=== PATIENT | male | born 1945 | race Caucasian/White ===

== ENCOUNTER → 2024-02-08 10:45 | Outpatient (REF) | payer OTHER, SELFPAY | LOC: PET 10:45 | PROVIDERS: ATTENDING PHYSICIAN Internal Medicine Hematology & Oncology | DX: C34.11 Malignant neoplasm of upper lobe, right bronchus or lung (principal) | CPT/HCPCS: 78815; A9552 ==

== ENCOUNTER → 2024-07-11 10:42 | Outpatient (REF) | payer OTHER, SELFPAY | LOC: PET 10:42 | PROVIDERS: ATTENDING PHYSICIAN Internal Medicine Hematology & Oncology | DX: C34.11 Malignant neoplasm of upper lobe, right bronchus or lung (principal) | CPT/HCPCS: 78815; A9552 ==

== ENCOUNTER → 2024-07-25 10:00 | Outpatient (REF) | payer OTHER, SELFPAY | LOC: RCS 10:00 | PROVIDERS: ATTENDING PHYSICIAN Nurse Practitioner; FAMILY PHYSICIAN Internal Medicine Hematology & Oncology | DX: I48.0 Paroxysmal atrial fibrillation (principal); C34.90 Malignant neoplasm of unspecified part of unspecified bronchus or lung; Z51.11 Encounter for antineoplastic chemotherapy | CPT/HCPCS: 93306; 93356 ==

== ENCOUNTER 2024-08-17 17:15 | Inpatient (IN) | payer OTHER, SELFPAY ==
[2024-08-17] VITALS (11 sets, daily range): BP systolic 92–147; BP diastolic 61–93; BMI 29.9
--- NOTE | 2024-08-17 10:45 | ED.GENMED ---
History of Present Illness
<SWATI Stone - Last Filed: 08/17/24 17:46>
General
Chief Complaint: Change in Mental Status
Source: patient and family
Exam Limitations: altered mental status
Time Seen by Provider: 08/17/24 10:36
Nursing documentation reviewed up to this point in time: agreed with
History of Present Illness
History of Present Illness:
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 Ashley cesar at [facility] presents today for evaluation. Patient normally manages his care but his sisters were at bedside also assist with
him. He does have a right pleural tube and they do drain periodically. They report when they saw patient on Tuesday 2 days ago they noticed he had some difficulty getting his words out. Sister reports he was okay with yes or no answers but
otherwise was having some difficulty. She thought it was from his new chemo medication. On July 27 he was started on oral Rozlytrek and in addition is also on steroids .
Sisters note that pt also has swelling in his feet legs hand and abdomen.
Patient is scheduled to have laser interstitial thermal therapy(DIAN) by neurosurgeon at [facility] Dr.H Salazar Munoz in August for brain mass. He has seen DR Theodore Rocha (neurosurgeon for gamma knife)
Past History
<SWATI Stone - Last Filed: 08/17/24 17:46>
Past History
ED Past Medical History: Cancer (lung cancer), Hypercholesterolemia and Psychiatric (Anxiety); Negative IDDM
ED Past Surgical History: Negative Cardiac
Social History
Tobacco: Non-smoker
Alcohol: None
Drug: None
Personal:
Living: with family
Employment: Retired
Family History
Family History: Other (Noncontributory)
Phy Exam
<SWATI Stone - Last Filed: 08/17/24 17:46>
General Physical Exam
General Presentation: no apparent distress
General age: appears stated age
General Skin: warm and dry
General Habitus: normal
General Mental: alert
General Hydration: appears well hydrated
Cardiovascular Exam
Cardiovascular Exam: regular rate/rhythm, no murmur and normal peripheral pulses
Pulmonary Exam
Pulmonary Exam: lungs clear and no respiratory distress
Neurological Exam
Neurological Exam: alert, oriented x3, no motor deficits, no sensory deficits and other (speech clear answers one word questions ; full range of motion upper lower extremities no focal deficit; follows commands)
Course
<SWATI Stone - Last Filed: 08/17/24 17:46>
Orders/Labs/Results
Orders:
Orders
08/17/24 11:00
CT Head W/o Iv Contrast Urgent
Comment:
Reason For Exam: change in ms hx of brain metastasis
08/17/24 11:04
Chest [CR Chest - 2 Views ] Urgent
Comment:
Reason For Exam: sob
08/17/24 12:25
Complete Blood Count/With Diff Urgent
Comprehensive Metabolic Panel Urgent
Pro-BNP [NT-proBNP] Urgent
08/17/24 13:51
Furosemide [Lasix] 40 mg IV NOW STA
08/17/24 13:52
Dexamethasone Sod Phosphate [Decadron] 6 mg IV NOW STA
08/17/24 15:16
Forrest [Forrest Placement- Treatment] ONCE
Reason for insertion: Acute Retention
08/17/24 15:19
Neurosurgery Consult Routine
Consulting Provider: Timbo Alicea
Was physician already notified: Yes
Reason for Consult: vasogenic cerebral edema due to mets
08/17/24 15:50
Urinalysis Reflex To Culture Urgent
Date Specimen was Collected: 08/17/24
Time Specimen was Collected: 15:32
08/17/24 16:30
Admit/Transfer Patient As Directed
Co-Sign Provider:
Level of Care: Inpatient admission
Assign to:: Medical/Surgical
Physician / Group: Hospitalist
Diagnosis: AMS, metastatic lung cancer
Reason for Hospitalization: As above
Expected length of stay greater than two midnights?: Yes
ELOS- Estimated Length of Stay in days: 3
I certify the patient meets the requirements for IP care: Yes
PRN Pain Medication Management As Directed
May give lesser potent ordered pain med per pt: Yes
preference::
Protocol:: Medication orders for pain may be administered in a
manner that supports deferring to patient preference
when the pt is:
- Requesting an ordered lesser potent pain medication.
Least to most potent pain medications are defined
as: acetaminophen < NSAID < tramadol < opioids
(morphine, oxycodone, hydromorphone).
- Requesting a lesser dose of the same medication IF
ORDERED.
- Requesting a less intrusive route of administration
if both routes are prescribed by the provider (PO <
IV).
08/17/24 16:33
Code Status As Directed
Resuscitation Status: Do not resuscitate
Reached after discussion with pt or family/Healthcare POA: Yes
08/17/24 16:34
DNR Bracelet Application ONCE
Abnormal Lab Results
08/17/24
12:25
RBC 4.23 L 10^6/uL
(4.70-6.10)
Hgb 12.4 L g/dL
(13.0-18.0)
Hct 37.0 L %
(39.0-52.0)
Absolute Monos (auto) 0.8 H 10^3/uL
(0.1-0.6)
Lymphocytes % 16.9 L %
(20.5-51.1)
BUN 25 H mg/dl
(9-20)
Creatinine 1.5 H mg/dL
(0.7-1.3)
Total Protein 5.9 L g/dl
(6.3-8.2)
Albumin 3.4 L g/dl
(3.5-5.0)
08/17/24 12:25
08/17/24 12:25
Vital Signs
Initial and Last Documented VS:
Initial Vital Signs
Temp Pulse Resp BP Pulse Ox
98.0 F 90 16 128/74 98
08/17/24 10:15 08/17/24 10:15 08/17/24 10:15 08/17/24 10:15 08/17/24 10:15
Last Documented Vital Signs
Temp Pulse Resp BP Pulse Ox
98.0 F 100 21 133/84 92
08/17/24 10:15 08/17/24 17:15 08/17/24 17:15 08/17/24 17:00 08/17/24 17:15
Applique Sewer consulted with Physician
Applique Sewer consulted with physician?: Yes
Name of Physician Consulted: DR Bey
<Vicente Ortega, DO - Last Filed: 08/17/24 13:57>
Orders/Labs/Results
Orders:
Orders
08/17/24 11:00
CT Head W/o Iv Contrast Urgent
Comment:
Reason For Exam: change in ms hx of brain metastasis
08/17/24 11:04
Chest [CR Chest - 2 Views ] Urgent
Comment:
Reason For Exam: sob
08/17/24 12:25
Complete Blood Count/With Diff Urgent
Comprehensive Metabolic Panel Urgent
Pro-BNP [NT-proBNP] Urgent
08/17/24 13:51
Furosemide [Lasix] 40 mg IV NOW STA
08/17/24 13:52
Dexamethasone Sod Phosphate [Decadron] 6 mg IV NOW STA
08/17/24 15:16
Forrest [Forrest Placement- Treatment] ONCE
Reason for insertion: Acute Retention
08/17/24 15:19
Neurosurgery Consult Routine
Consulting Provider: Timbo Alicea
Was physician already notified: Yes
Reason for Consult: vasogenic cerebral edema due to mets
08/17/24 15:50
Urinalysis Reflex To Culture Urgent
Date Specimen was Collected: 08/17/24
Time Specimen was Collected: 15:32
08/17/24 16:30
Admit/Transfer Patient As Directed
Co-Sign Provider:
Level of Care: Inpatient admission
Assign to:: Medical/Surgical
Physician / Group: Hospitalist
Diagnosis: AMS, metastatic lung cancer
Reason for Hospitalization: As above
Expected length of stay greater than two midnights?: Yes
ELOS- Estimated Length of Stay in days: 3
I certify the patient meets the requirements for IP care: Yes
PRN Pain Medication Management As Directed
May give lesser potent ordered pain med per pt: Yes
preference::
Protocol:: Medication orders for pain may be administered in a
manner that supports deferring to patient preference
when the pt is:
- Requesting an ordered lesser potent pain medication.
Least to most potent pain medications are defined
as: acetaminophen < NSAID < tramadol < opioids
(morphine, oxycodone, hydromorphone).
- Requesting a lesser dose of the same medication IF
ORDERED.
- Requesting a less intrusive route of administration
if both routes are prescribed by the provider (PO <
IV).
08/17/24 16:33
Code Status As Directed
Resuscitation Status: Do not resuscitate
Reached after discussion with pt or family/Healthcare POA: Yes
08/17/24 16:34
DNR Bracelet Application ONCE
Abnormal Lab Results
08/17/24
12:25
RBC 4.23 L 10^6/uL
(4.70-6.10)
Hgb 12.4 L g/dL
(13.0-18.0)
Hct 37.0 L %
(39.0-52.0)
Absolute Monos (auto) 0.8 H 10^3/uL
(0.1-0.6)
Lymphocytes % 16.9 L %
(20.5-51.1)
BUN 25 H mg/dl
(9-20)
Creatinine 1.5 H mg/dL
(0.7-1.3)
Total Protein 5.9 L g/dl
(6.3-8.2)
Albumin 3.4 L g/dl
(3.5-5.0)
08/17/24 12:25
08/17/24 12:25
Vital Signs
Initial and Last Documented VS:
Initial Vital Signs
Temp Pulse Resp BP Pulse Ox
98.0 F 90 16 128/74 98
08/17/24 10:15 08/17/24 10:15 08/17/24 10:15 08/17/24 10:15 08/17/24 10:15
Last Documented Vital Signs
Temp Pulse Resp BP Pulse Ox
98.0 F 100 21 133/84 92
08/17/24 10:15 08/17/24 17:15 08/17/24 17:15 08/17/24 17:00 08/17/24 17:15
<SWATI Stone - Last Filed: 08/17/24 17:46>
MDM/Problems Addressed
Differential Diagnosis Includes:
Not limited to stroke, complication from brain metastasis, infection
MDM/Problems Addressed:
Patient is a 79-year-old male with metastatic lung cancer to brain followed by Dr. Wakefield at [facility]. in addition he is followed by [facility] and has neurosurgeons there. Sisters and significant other at bedside report patient has had
a change in mental status for the past several days. Patient presents awake alert he is able to tell me where he is and answer yes and no questions however does have difficulty reporting history and speaking in sentences. Speech is clear no focal
deficits he is ambulatory and steady. CAT scan shows increased vasogenic edema. In addition to mental status changes he has had increased swelling in his lower extremities and family reports patient recently started on new chemo agent, Rozlytrek.
pt presents awake alert he does follow commands he is answering very specific yes or no questions or has difficulty giving history and difficulty speaking in sentences. His speech is clear. CAT scan does show increased vasogenic edema as
documented. He does have obvious swelling of lower extremities. Patient has a known pleural effusion with home drainage every other day. 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
I spoke with DR Rosales neurosurg at [facility] who did review his prior images and is okay with patient staying here for admission but will need IV steroids. As discussed with I did order Decadron 6 mg IV and will order Lasix 40 mg iv .
Neuro surg DR Alicea ok with pt being admitted here
<SWATI Stone - Last Filed: 08/17/24 17:46>
*Radiology
Radiology exam reviewed: radiology read reviewed
*Critical Care Note
Total Time (30-74mins, 75-104mins- exclusive of procedures): Not Applicable
ED Attending Note
<SWATI Stone - Last Filed: 08/17/24 17:46>
-
Portions of this chart may have been created with voice recognition software.� Occasional wrong word or��sound alike� substitutions may have occurred due to the inherent limitations of voice recognition software.
<Vicente Ortega, DO - Last Filed: 08/17/24 13:57>
ED Attending Note
Patient seen and examined by attending physician: Yes
I performed the substantive portion of visit, reviewed & personally made and approve the management plan that is documented in note by myself or VIRIDIANA.: Yes
I performed a history and physical exam of patient and discussed management with resident, I reviewed resident's note and agree with documented findings and plan of care.: Yes
ED Attending Note:
I evaluated the patient bedside and the patient's family. Family strongly prefers patient to be kept in the hospital here. Edema noted and BNP has worsened. Large loculated pleural effusion noted.
Discharge Plan
Departure
Patient Disposition: Admit
Date of Disposition: 08/17/24
Time of Disposition: 14:55
Admit to: Telemetry
Admit to doctor: hospitalist
Presentation/result/management discussed w/ accepting MD/DO: Hospitalist
Patient with high blood pressure during this ER visit?: Yes
Condition: Fair
Covid-19: Not Applicable
Discharge Problem:
Altered mental status, fluid overload
Interventions
Interventions:
*Risk Screen - Suicide Last Done: 08/17/24 12:21
*General Assessment Last Done: 08/17/24 12:21
*Neglect/Abuse Screening Last Done: 08/17/24 12:21
ED- Fall Risk Assessment Last Done: 08/17/24 12:21
*ED COVID-19 Vaccine History Last Done: 08/17/24 12:21
ED- Pulmonary Assessment Last Done: 08/17/24 12:21
ED- Neurological Assessment Last Done: 08/17/24 12:21
ED- Cardiac Assessment Last Done: 08/17/24 12:21
ED Swallowing Screen Last Done: 08/17/24 12:21
[2024-08-17 12:39] LABS: % Basophils 0.2 % (0-2); % Eosinophils 0.9 % (0-6); % Immature Granulocytes 0.3 % (0-0.5); % Lymphocytes 16.9 % (20.5-51.1); % Monocytes 9.3 % (1.7-9.3); % Neutrophils 72.4 % (42.2-75.2); Absolute Eosinophils 0.1 10^3/uL (0-0.7); Absolute Lymphocytes 1.5 10^3/uL (1.2-3.4); Absolute Monocytes 0.8 10^3/uL (0.1-0.6); Absolute Neutrophils 6.3 10^3/uL (1.4-6.5); Hemoglobin 12.4 g/dL (13.0-18.0); Mean Corp Hgb Conc. 33.5 g/dL (33.0-37.0); Mean Corpuscular Hgb 29.3 pg (27.0-31.0); Mean Corpuscular Volume 87.5 fL (80.0-94.0); Mean Platelet Volume 8.4 fL (7.4-10.4); Nucleated Red Blood Cells % 0 % (-); Platelet Count 156 10^3/uL (130-400); Red Blood Cell Count 4.23 10^6/uL (4.70-6.10); Red Cell Dist. Width 14.3 % (11.5-14.5); White Blood Cell Count 8.7 10^3/uL (4.8-10.8)
[2024-08-17 12:46] LABS: ALT (SGPT) 20 U/L (0-50); AST (SGOT) 39 U/L (17-59); Albumin 3.4 g/dl (3.5-5.0); Alkaline Phosphatase 64 U/L (38-126); Blood Urea Nitrogen 25 mg/dl (9-20); Calcium 8.5 mg/dl (8.4-10.2); Carbon Dioxide 30 mmol/L (22-30); Chloride 103 mmol/L (98-107); Estimated Creatinine Clearance 49 ml/min; Glucose 86 mg/dl (70-99); Potassium 4.8 mmol/L (3.5-5.1); Sodium 140 mmol/L (135-145); Total Bilirubin 1.2 mg/dl (0.2-1.3); Total Protein 5.9 g/dl (6.3-8.2); eGFR 47.36
[2024-08-17 12:55] LABS: NT-proBNP 1560 pg/ml
[2024-08-17] MEDS: LASIX 40 MG IV (14:37)
[2024-08-17] MEDS: DECADRON 6 MG IV (14:37)
--- NOTE | 2024-08-17 16:22 | CM ---
Patient seen at bedside in ED with physician. Patient sister stated that patient lives alone in a split level home. Patient sister is his POA and stated that the form is at the house and she will bring it to the hospital for physician. Patient
Daughter is Toshia and her phone number is [phone] and she comes on a regular basis to assist patient with house chores. Patient does not allow family into the home and prefers things to be private. Patient has a 'ladyfriend' Danyell who is a
nurse and patient drives to her home in [place]- one story set up possible and stays there -tue. 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 Patient has no DME or past need for VN, no SNF. Patient has been
very sharp until approx /tue per sisters. Patient PCP is Dr. Yee, recently changed from Dr. Diaz- same practice and he uses the [facility] in [place]. Per sisters patient is very independent and they are unaccustomed to him not being able to
speak or direct his care. Discharge plan will depend upon patient functional status and medical treatment needs. CM will continue to follow for discharge planning needs.
Plan; pending functional assessment/medical treatment plan.
[2024-08-17 16:34] LABS: Urine Albumin Negative (Neg - Trace); Urine Bilirubin Negative (Negative); Urine Character Clear (Clear); Urine Color Yellow; Urine Glucose Negative (Negative); Urine Ketone Negative (Negative); Urine Leukocyte Negative (Negative); Urine Nitrite Negative (Negative); Urine Occult Blood Negative (Negative); Urine Urobilinogen Negative (Neg - 1+)
--- NOTE | 2024-08-17 16:51 | W.PN.UPDATE ---
Update Note
Progress Note Update
I personally performed a history and physical exam of the patient and discussed management with the resident. I reviewed the resident's note and agree with the documented findings and plan of care HPI/CC.
129/89, 101, 21, 98.0 �F, 92% RA
NAD, AAOx1, NCAT
EOMI/PERRLA, no scleral icterus
Tachycardic, regular rhythm with frequent premature beats, normal S1-S2
Clear to auscultate bilaterally anteriorly
Cranial nerves II 12 are intact, 4/5 strength in all 4 extremities
2+ bilateral lower extremity edema
Lab Results
08/17/24 08/17/24
12:25 15:50
WBC 8.7
RBC 4.23 L
Hgb 12.4 L
Hct 37.0 L
MCV 87.5
MCH 29.3
MCHC 33.5
RDW 14.3
Plt Count 156
MPV 8.4
Abs Immat Gran (auto) 0.0
Absolute Neuts (auto) 6.3
Absolute Lymphs (auto) 1.5
Absolute Monos (auto) 0.8 H
Absolute Eos (auto) 0.1
Absolute Basos (auto) 0.0
Immature Gran % 0.3
Neutrophils % 72.4
Lymphocytes % 16.9 L
Monocytes % 9.3
Eosinophils % 0.9
Basophils % 0.2
Nucleated RBC % 0
Sodium 140
Potassium 4.8
Chloride 103
Carbon Dioxide 30
BUN 25 H
Creatinine 1.5 H
Estimated Creat Clear 49
eGFR 47.36
Glucose 86
Calcium 8.5
Total Bilirubin 1.2
AST 39
ALT 20
Alkaline Phosphatase 64
Era-B-Nmawzksrxav Pept 1560
Total Protein 5.9 L
Albumin 3.4 L
Urine Color Yellow
Urine Clarity Clear
Urine pH 7.0
Ur Specific [place] 1.010
Urine Ketones Negative
Ur Occult Blood Reflex Negative
Urine Nitrite (Reflex) Negative
Urine Bilirubin Negative
Urine Urobilinogen Negative
Leukocyte Esterase Rfl Negative
Urine Glucose Negative
Urine Albumin (Reflex) Negative
CT brain:
1. SEVERE VASOGENIC EDEMA throughout the superior LEFT FRONTAL LOBE surrounding a 1.9 cm INTRAPARENCHYMAL BRAIN METASTASIS. Marked interval increase in vasogenic edema since 07/21/2022.
2. Mild diffuse cerebral and cerebellar volume loss.
Acute encephalopathy:
-Likely due to vasogenic edema from metastatic lung cancer to the brain vs side effects of new chemo agent, Rozyltrek
-IV Decadron started in the ER, continue
-Patient is followed by neurosurgery at [facility]. The ER did discuss the case with the patient's neurosurgeon, Dr. Rosales who stated that he was ok with the pt staying at . Case discussed with Dr. Alicea who was in agreement (official c/s to
neurosurgery placed)
-afebrile, no leukocytosis
-c/s ONC
-PT/OT
B/L LE edema:
-Patient's family has noted worsening edema since he started his most recent chemotherapeutic drug
-IV Lasix given by the ER
-Will monitor daily and determine further Lasix dosing on a daily basis
--- NOTE | 2024-08-17 16:51 | HPS.HSE ---
Family Physician
-
Family Physician: Vazquez Yee
Chief Complaint
-
altered mental status
History of Present Illness
79yo M with H metastatic lung cancer with involvement of brain, who presents to ED 08/17/24 for altered mental status. His sisters Julianne (medical POA) and Marielos are at bedside and provided history. He was very healthy with no medical history
up until 4 years ago when he was diagnosed with lung cancer after presenting with shortness of breath. He has a chronic pleural effusion on the right, for which he has an ascept drain in place which is drained every 2 days. In Jun 2022, an MRI
indicated his lung cancer metastasized to brain. At his baseline, he is 'brilliant' and 'sharp as a tack' per his family. He was living alone, completely independently, driving self to own appointments, keeping meticulous records of his medical
care; has not required care facility or visiting nursing. Approximately 2-3 days ago, his family began noticing confusion, difficulty getting words out, as well as swelling in hands, feet, legs bilaterally. Recent medications include initiation of
rozlytrek on 07/27/24 as well as a recent steroid taper which stopped a few days ago. Patient agrees he is not feeling like himself and feels confused.
Medical History
Past Medical History
Past Medical History: Reports Arrhythmia (paroxysmal afib), Cancer (metastatic lung cancer, brain involvement), GERD and Psychiatric (anxiety)
Additional Past Medical History:
oncologist: Shanthi Ramirez
intermediate manager: Quinn Newell
furniture polisher: Dr Zuleyka Fung
radiation oncologist: Aida Michaud
radition oncologist (gamma knife): Jose Carlson
neurosurgeon (gamma knife): Theodore Rocha
neurosurgeon (laser interstitial thermal therapy): Salazar Munoz
thoracic surgeon: Jesse Prado- advised against VATS, decortication
ID: Ken Pablo
PCP: Vazquez Yee (havent seen yet, former PCP was Tre Diaz)
Past Surgical History: Reports Other
Additional Past Surgical History:
paracentesis x24 from 07/2020-12/2022
L pleural catheter 11/24/22-02/13/23
R pleural catheter 02/13/23-present (required replacement and tpa/dnase 11/10/23)
gamma knife radiation treatment
Social History
Tobacco: Former Smoker
Alcohol: Occasional (social alcohol in past; no current alcohol use)
Drug: None ('experimentation' in teenage years, no IVDU)
Personal: Other ('lady friend' significant other)
Living: Alone (stays with SO -Tuesday)
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
Family History
Family History: Cancer (siblings- brain cancer, thyroid cancer, heart valve issue; father- stroke, lung/bone cancer; mother- leukemia) and Other
Allergies / Home Medications
Allergies reflects when Allergies were last updated in [facility].
Home Medications with original date entered in [facility]
Allergy/Medication List:
Allergies
Allergy/AdvReac Type Severity Reaction Status Date / Time
Latex, Natural Rubber Allergy Unknown Hives Verified 08/17/24 10:18
adhesive Allergy Hives Verified 08/17/24 10:18
Home Medications
docusate sodium 100 mg capsule (Colace) 100 mg PO BIDPRN PRN constipation 09/07/21
furosemide 40 mg tablet 40 mg PO Daily 12/22/22
sennosides 8.6 mg tablet (Senokot) 17.2 mg PO DAILYPRN PRN constipation 12/22/22
ferrous sulfate 325 mg (65 mg iron) tablet 325 mg PO DAILY 02/01/23
multivitamin 1 tab PO DAILY 11/10/23
entrectinib 200 mg capsule (Rozlytrek) 600 mg PO DAILY 08/17/24
ondansetron 8 mg disintegrating tablet 8 mg PO [id number] PRN nausea 08/17/24
pantoprazole 40 mg tablet,delayed release (Protonix) 40 mg PO DAILY 08/17/24
Review of Systems
-
Unable to obtain full review of systems at this time due to: Other (limited by AMS)
History Source: Patient
Respiratory: Denies Cough or Trouble Breathing
Cardiac: Denies Chest Pain
Abdomen/GI: Denies Abdominal Pain, Nausea or Vomiting
: Reports Difficulty Voiding
Neurological: Denies Dizzy
Hematologic/Lymphatic: Denies Bleeding or Bruising
Physical Exam
Vital Signs
Vital Signs
Temp Pulse Resp BP Pulse Ox
98.0 F 101 21 129/89 92
08/17/24 10:15 08/17/24 15:15 08/17/24 15:15 08/17/24 15:00 08/17/24 13:30
Physical Exam
General: Well Developed, Well Nourished and No Apparent Distress
HEENT: NormoCephalic, Anicteric and Atraumatic
Respiratory: Clear (left side), Non Labored Respirations, Decreased Breath Sounds (right side) and Other (right pleural catheter present, covered by dressing)
Cardiac: S1/S2 and Regular Rhythm
GI: Soft, Non Tender, Non Distended and Normal Bowel Sounds
Genito-urinary: Clear Urine and Forrest
Musculoskeletal: Other (bilateral 2+ pitting edema lower extremities, symmetric)
Skin: Warm, Dry and Other (pink discoloration of shins bilaterally)
Neuro: Awake and Alert; No Oriented, Slurred Speech or Facial Droop
Psych: Calm and Confused
Laboratory Results
-
08/17/24 12:25
08/17/24 12:25
Laboratory Results
Total Bilirubin 1.2 mg/dl (0.2-1.3) 08/17/24 12:25
AST 39 U/L (17-59) 08/17/24 12:25
ALT 20 U/L (0-50) 08/17/24 12:25
Alkaline Phosphatase 64 U/L (38-126) 08/17/24 12:25
Data Reviewed
-
Lab Data: Labs Reviewed by me and Discussed with Physician
Impression/Plan
-
79yo M with PMH metastatic lung cancer with involvement of brain, who presents to ED 08/17/24 for altered mental status. History on admission obtained from sisters Julianne (medical POA) and Marielos are at bedside and provided history.
Acute encephalopathy
- Likely due to vasogenic edema secondary to brain involvement of metastatic lung cancer
- Afebrile, no leukocytosis
- ED discussed with patient's neurogeon at [facility], who agrees with hospitalization and ok with admission. Admit to [facility].
- Started on IV decadron in ED, will continue decadron 4mg q6h
- Hold home rozlytrek given side effect profile significant for cognitive dysfunction, ataxia, fatigue, etc.
- Consult neurosurgery and oncology, appreciate recs.
- Patient's family and POA also open to palliative approach, goals of care discussion ongoing. Will consider palliative care consult
- PT/OT consult
Metastatic lung cancer
R pleural catheter
- Continue routine drainage of pleural catheter
- Care as above
Bilateral lower extremity edema
- Continue home lasix 40mg po qd
- Reassess prn
Urinary retention
- Difficulty urinating in ED, bladder scan notable for incomplete voiding
- Forrest catheter placed in ED, continue.
Code status: DNR- discussed with POA sister Julianne on admission
Diet: Regular
VTE ppx: lovenox 40
Dispo planning: TBD
--- NOTE | 2024-08-17 18:30 | PTCARENOTE ---
pt admitted to room 327 from ED. pt stood and pivoted to bed with 1 assist, generalized weakness. oriented to room and unit. pt AAOx2- confused place, selectively answering questions. +1 lower extremity edema. shins with redness noted. pt updated on
plan of care.
[2024-08-17] MEDS: DECADRON 4 MG IV (20:16)
[2024-08-18] MEDS: DECADRON 4 MG IV ×4 (02:24→19:57)
--- NOTE | 2024-08-18 07:47 | W.PN.HOSP.TC ---
Addendum entered and electronically signed by Nancy Villanueva MD, Resident 08/18/24 15:18:
At bedside this afternoon to review plan with patient, sisters, and SO Danyell. Plan was for pleural cath drainage today, however they prefer this be done by IR tech. Discussed with IR and consult placed. S/p PT/OT eval today, recommended home
health- patient and family agreeable with increased care needs at home and help with transportation to/from appointments. Urine concentrated- encouraged PO hydration. TOV to be completed this afternoon, oncology consult pending. Family appreciative
of updates, no further questions at this time. Patient in good mood, eating, more conversant, jokingly says 'you are dismissed.'
Addendum entered and electronically signed by Salomón Yoon MD 08/18/24 09:55:
I saw and evaluated the patient. I reviewed the resident�s note and agree with findings and plan as documented in the resident�s note.
When asked how the patient was feeling he said 'great. I'd like you to see me later.'
NAD, awake and alert
CN2-12 intact
Unable to perform the rest of the physical exam due to to the patient's refusal.
CT brain:
1. SEVERE VASOGENIC EDEMA throughout the superior LEFT FRONTAL LOBE surrounding a 1.9 cm INTRAPARENCHYMAL BRAIN METASTASIS. Marked interval increase in vasogenic edema since 07/21/2022.
2. Mild diffuse cerebral and cerebellar volume loss.
Acute encephalopathy:
-Likely due to vasogenic edema from metastatic lung cancer to the brain +/- side effects of new chemo agent, Rozyltrek
-cont IV Decadron started in the ER
-Patient is followed by neurosurgery at [place]. The ER did discuss the case with the patient's neurosurgeon, Dr. Rosales who stated that he was ok with the pt staying at . Case discussed with Dr. Alicea who was in agreement. No need for official
neurosurgical c/s at this time.
-afebrile, no leukocytosis
-c/s ONC
-PT/OT
B/L LE edema:
-Patient's family has noted worsening edema since he started his most recent chemotherapeutic drug
-IV Lasix given by the ER
-cont home PO Lasix
Acute urinary retention:
-Discontinue Wing, trial of voiding
Possible LIMA:
-Cr 11/01/22 was 1.1, Cr today 1.4
-unclear what baseline Cr is
-with LE edema would not give IVFs at this time
-cont to monitor Cr outpt
Original Note:
Today's Communication/Plan
-
PT/OT, pleural catheter drainage today, trial of void with prn bladder scans
Assessment / Plan
Assessment / Plan
79yo M with PMH metastatic lung cancer with involvement of brain, who presents to ED 08/17/24 for altered mental status. History on admission obtained from sisters Julianne (medical POA) and Marielos at bedside.
Acute encephalopathy
- Likely due to vasogenic edema secondary to brain involvement of metastatic lung cancer
- No leukocytosis on admission. AM labs today pending. Remains afebrile.
- ED discussed with patient's neurogeon at [place], who agrees with hospitalization and ok with admission. Admit to [facility].
- Started on IV decadron in ED, will continue decadron 4mg q6h while inpatient. Anticipate PO steroids at discharge
- Hold home rozlytrek given side effect profile significant for cognitive dysfunction, ataxia, fatigue, etc. Reviewed with patient, he is in agreement.
- Patient's family and POA also open to palliative approach, goals of care discussion ongoing. Will consider palliative care consult
- PT/OT consult
Metastatic lung cancer
R pleural catheter
- Continue routine drainage of pleural catheter- due for this today
- Care as above
Bilateral lower extremity edema
- Continue home lasix 40mg po qd
- Reassess prn
Urinary retention
- Difficulty urinating in ED, bladder scan notable for incomplete voiding and wing catheter placed.
- Trial of void today and monitor UOP, bladder scan prn. Wiill reassess need for wing catheter prn.
Code status: DNR- discussed with POA sister Julianne on admission, and reviewed with patient 08/18/24
Diet: Regular
VTE ppx: lovenox 40
Dispo planning: TBD
Anticipated Discharge: 24 - 48 hours
Subjective/Interval History
-
Date of Service: August 18, 2024
No acute events overnight. He is comfortable, no pain. His complaints are the wing and difficulty communicating. He is very aware of his medical problems including communication, and is upset and frustrated by this. His goal is to go home today, [facility] SO[facility] He denies lightheadedness, dizziness, chest pain, shortness of breath, nausea, vomiting. He denies pain/difficulty swallowing, awaiting breakfast this morning.
Objective Data
-
Labs:
Laboratory Results
08/18/24
07:15
WBC Pending
Hgb Pending
Hct Pending
Plt Count Pending
Sodium Pending
Potassium Pending
Chloride Pending
Carbon Dioxide Pending
BUN Pending
Creatinine Pending
Glucose Pending
Calcium Pending
Vital Signs:
Vital Signs
Temp Pulse Resp BP Pulse Ox
98.5 F 74 20 110/61 95
08/17/24 23:25 08/17/24 23:25 08/17/24 23:25 08/17/24 23:25 08/17/24 23:25
I&O
08/17/24 08/18/24 08/19/24
06:59 06:59 06:59
Output Total 1700 / 1700
Balance -1700 / -1700
Review of Systems
-
History Source: Patient
All other systems: Reviewed and negative
Physical Exam
-
General: Well Developed, Well Nourished and Other (Physically comfortable. Engages in conversation appropriately though his responses to questions is somewhat limited. Visibly upset/frustrated by limited communicative abilities.)
HEENT: Normocephalic and Atraumatic
Respiratory: Clear to Auscultation (left), Non Labored Respirations, Decreased Breath Sounds (right) and Chest Tubes (right pleural catheter present, covered by dressing)
Cardiac: Regular Rhythm and S1/S2
GI: Soft, Nontender, Nondistended and Normal Bowel Sounds
Genito-urinary: Wing (draining clear concentrated yellow urine)
Musculoskeletal: Other (bilateral lower extremity pitting edema, symmetric)
Skin: Warm and Dry
Neuro: Awake and Alert
Psych: Calm, Intact Judgement/Insight and Other (tearful on exam, endorses frustration due to diminished ability to talk/express himself)
[2024-08-18 08:15] LABS: Hematocrit 38.2 % (39.0-52.0); Mean Corpuscular Hgb 30.6 pg (27.0-31.0); Mean Corpuscular Volume 89.9 fL (80.0-94.0); Mean Platelet Volume 8.7 fL (7.4-10.4); Platelet Count 168 10^3/uL (130-400); Red Blood Cell Count 4.25 10^6/uL (4.70-6.10); Red Cell Dist. Width 13.5 % (11.5-14.5); White Blood Cell Count 9.3 10^3/uL (4.8-10.8)
--- NOTE | 2024-08-18 08:28 | PTOTSP ---
Speech Pathology Screen
Chart reviewed. 79M with admission for acute encephalopathy likely 2/2 metastatic lung cancer with involvement of brain. Followed by neurosurgery at [place]. PMH significant for Arrhythmia (paroxysmal afib), Cancer (metastatic lung cancer, brain
involvement), GERD and Psychiatric (anxiety). Vital signs stable. WBC 9.3, WNL. Head CT 08/17 with �SEVERE VASOGENIC EDEMA throughout the superior LEFT FRONTAL LOBE surrounding a 1.9 cm INTRAPARENCHYMAL BRAIN METASTASIS� and �mild diffuse cerebral
and cerebellar volume loss.� CXR 08/07 with �LARGE LOCULATED MALIGNANT PLEURAL EFFUSION in the LATERAL RIGHT HEMITHORAX with a right chest tube remaining in place� and �Large amount of subpleural scarring and atelectasis in the right upper and
middle lobes� and �Right lower lobe cavitary airspace consolidation which appears unchanged.� No prior FRINGE WEAVER history at . Aspiration risk is increased given multiple comorbidities in the presence of AMS; however, no overt concerns for aspiration at
this time. Please re-consult if overt s/s arise.
[2024-08-18 08:30] VITALS: BP 126/79
[2024-08-18 08:38] LABS: Blood Urea Nitrogen 30 mg/dl (9-20); Calcium 8.8 mg/dl (8.4-10.2); Carbon Dioxide 28 mmol/L (22-30); Chloride 103 mmol/L (98-107); Estimated Creatinine Clearance 52 ml/min; Glucose 123 mg/dl (70-99); Potassium 4.3 mmol/L (3.5-5.1); Sodium 140 mmol/L (135-145); eGFR 51.45
[2024-08-18] MEDS: LASIX 40 MG PO (08:41)
[2024-08-18] MEDS: FEOSOL 325 MG PO (08:41)
[2024-08-18] MEDS: PROTONIX PO (08:49)
[2024-08-18] MEDS: COLACE 100 MG PO (08:57)
[2024-08-18 14:03] VITALS: BP 140/86; PULSE 104; O2SAT 94
[2024-08-18 14:05] VITALS: BP 140/86; PULSE 103; O2SAT 94
[2024-08-18] MEDS: FLUSH (NSS) 2 FLUSH IV (14:21)
--- NOTE | 2024-08-18 15:27 | PTCARENOTE ---
patient has difficulty communicating/expressing himself and can become easily frustrated and his response to questions can be limited, tolerating diet, transferring with supervision to chair, vss, will continue to monitor.
[2024-08-18 16:08] VITALS: BP 121/76
--- NOTE | 2024-08-18 16:50 | CM ---
Spoke with pt in his room. PT OT recommended VN .
He has sister and friend support.
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
Will offer VN .
PLAN Home with VN
--- NOTE | 2024-08-18 17:07 | PTCARENOTE ---
Forrest was removed at 1610 per order, placed patient on time and amount, urine given, will continue to monitor.
[2024-08-18 23:48] VITALS: BP 123/78
[2024-08-19] MEDS: DECADRON 4 MG IV ×3 (01:46→13:51)
--- NOTE | 2024-08-19 05:56 | CON.ONC ---
Impression
Impression
Metastatic lung cancer ROS1 positive with PERINATAL TECHNICIAN metastasis
PERINATAL TECHNICIAN edema leading to altered mental status
Chronic pleural effusion with R pleural catheter
Code status: DNR
Plan
Plan
Patient clinically improved on dexamethasone which will help decrease PERINATAL TECHNICIAN edema causing encephalopathy.
Transition to oral dexamethasone 4 mg PO TID and then very gradual taper 4 to 6 weeks under the care of his oncology team.
Patient can resume ROZLYTREK� (entrectinib) 600 mg PO Daily as based on the CT scan showing significant edema, I do NOT think that the etiology of the encephalopathy is related to drug side effect.
This treatment was just started about 4 weeks ago so it is too soon for us to call it ineffective or disease progression just that the steroid wean was probably too quick.
Patient is scheduled for med onc follow-up with Dr. Wakefield on 08/28 at 3:45. If he remains hospitalized for observation until tomorrow, she is making rounds tomorrow 08/20 although no reason to keep him here assuming neurologically stable for
discharge.
Regarding management of ASEPT drain, this can be drained as he is getting done as an outpatient every 2 days or so based on his symptoms.
Thank you for this consult. Will follow along with you.
Patient History
History of Present Illness
CC: /\\ in mental status
HPI: 79yo M with PMH ROS1+ metastatic lung cancer with brain mets, who presents to ED 08/17/24 for altered mental status. He was initially diagnosed in 1999 with lung cancer. He presented with a new right pleural effusion. CT chest showed airspace
opacity RLL, underlying mass could not be definitively excluded. He underwent thoracentesis for 2L, cytology consistent with adenocarcinoma positive for ROS1 rearrangement and HER2 amplification. He then underwent PET scan showing mod R effusion and
FDG uptake medial RUL and RLL, R hilum, L hilum, sub�sharif and right R mediastinum. In 2021 he was found to have intracranial metastatic disease. Recent PET CT scan shows stable systemic disease with a chronic right pleural effusion. He has a
right ASEPT type catheter which is drained approximately every 2 days for symptomatic relief. He states his breathing is 'fine right now '. His main issue is progressive brain edema. He is currently on ROZLYTREK� (entrectinib) just initiated on
07/2020 after he had PERINATAL TECHNICIAN progression on ALECENSA� (alectinib). He recently weaned down on steroids and his family began noticing confusion, difficulty getting words out, as well as swelling in hands, feet, legs bilaterally. Head CT without
contrast in the ER showed SEVERE VASOGENIC EDEMA throughout the superior LEFT FRONTAL LOBE surrounding a 1.9 cm INTRAPARENCHYMAL BRAIN METASTASIS. He was started on dexamethasone 4 mg IV every 6 hours and even though I did not see him yesterday,
clinically seems to have improved neurologically. Nurses aide did come in during my consultation and he insisted that he needed to go to the bathroom. My examination was cut somewhat short.
Oncology team: Shanthi Wakefield, radiation oncologist: Aida Michaud & Jose Carlson ([place])
Past-Medical/Surgical History
PMH: Paroxysmal afib, metastatic ROS1 + lung cancer with chronic right malignant pleural effusion and PERINATAL TECHNICIAN metastasis, GERD, eosinophilic esophagitis, hyperlipidemia, cataracts and anxiety
PSH: ASEPT catheter
SH:
Tobacco: Former Smoker -quit 30 years ago
Alcohol: Occasional (social alcohol in past; no current alcohol use)
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
FH: Cancer (siblings- brain cancer, thyroid cancer, heart valve issue; father- stroke, lung/bone cancer; mother- leukemia) and Other
Patient Medication
�Medication �Instructions �Recorded �Confirmed �Last Taken �Type
docusate sodium 100 mg capsule 100 mg PO BIDPRN PRN constipation 09/07/21 08/17/24 11/09/23 History
(Colace)
furosemide 40 mg tablet 40 mg PO Daily Fluid 12/22/22 08/17/24 11/10/23 History
Retention/Swelling
sennosides 8.6 mg tablet (Senokot) 17.2 mg PO DAILYPRN PRN 12/22/22 08/17/24 11/09/23 History
constipation
ferrous sulfate 325 mg (65 mg 325 mg PO DAILY Supplement 02/01/23 08/17/24 11/09/23 History
iron) tablet
multivitamin 1 tab PO DAILY Supplement 11/10/23 08/17/24 11/09/23 History
entrectinib 200 mg capsule 600 mg PO DAILY Cancer 08/17/24 08/17/24 Unknown History
(Jamaalk)
ondansetron 8 mg disintegrating 8 mg PO [id number] PRN nausea 08/17/24 08/17/24 Unknown History
tablet
pantoprazole 40 mg tablet,delayed 40 mg PO DAILY Gastrointestinal 08/17/24 08/17/24 Unknown History
release (Protonix) Issue
Active Medications
Generic Name Dose Route Start Last Admin
Trade Name Freq PRN Reason Stop Dose Admin
Acetaminophen 650 mg 08/17/24 18:38
Acetaminophen 325 Mg Tablet PO 09/14/24 18:37
Q4HPRN PRN
mild pain/SALGADO/temp> 100.4F
Bisacodyl 10 mg 08/17/24 18:38
Bisacodyl 10 Mg Rectal Suppository RECTAL 09/14/24 18:37
[id number] PRN
constipation
Dexamethasone Sodium Phosphate 4 mg 08/17/24 20:00 08/19/24 01:46
Dexamethasone 4 Mg/Ml 1 Ml Vial IV 09/14/24 19:59 4 mg
Q6H CARRIE Administration
Docusate Sodium 100 mg 08/17/24 18:38 08/18/24 08:57
Docusate Sodium 100 Mg Capsule PO 09/14/24 18:37 100 mg
BIDPRN PRN Administration
constipation
Enoxaparin Sodium 40 mg 08/17/24 18:38 08/18/24 17:34
Enoxaparin Sodium 40 Mg/0.4 Ml Syringe SC 09/14/24 18:37 Not Given
QPM CARRIE
Ferrous Sulfate 325 mg 08/18/24 08:00 08/18/24 08:41
Ferrous Sulfate 325 Mg Tablet PO 09/15/24 07:59 325 mg
DAILY CARRIE Administration
Furosemide 40 mg 08/18/24 08:00 08/18/24 08:41
Furosemide 40 Mg Tablet PO 09/15/24 07:59 40 mg
DAILY CARRIE Administration
Multivitamins Therapeutic 1 tablet 08/18/24 08:00 08/18/24 08:47
Multivitamin Tablet PO 09/15/24 07:59 Not Given
DAILY CARRIE
Ondansetron HCl 8 mg 08/17/24 18:49
Ondansetron 4 Mg (Orally-Disintegrating) Tablet PO 09/14/24 18:48
[id number] PRN
nausea
Pantoprazole Sodium 40 mg 08/18/24 08:00 08/18/24 08:49
Pantoprazole 40 Mg Delayed Release Tablet PO 09/15/24 07:59 Not Given
DAILY CARRIE
Polyethylene Glycol 17 grams 08/17/24 18:38
Polyethylene Glycol Powder 17 Grams Packet PO 09/14/24 18:37
DAILYPRN PRN
constipation
Sennosides 17.2 mg 08/17/24 18:38
Sennosides (Senokot) 8.6 Mg Tablet PO 09/14/24 18:37
DAILYPRN PRN
constipation
Sodium Chloride 0 flush 08/17/24 19:00 08/18/24 14:21
Sodium Chloride 0.9% (Flush) Syringe IV 09/14/24 18:59 2 flush
PER PROTOCOL CARRIE Administration
Physical Exam
-
General: No Apparent Distress and Comfortable; Negative Respiratory Distress
HEENT: Negative Jaundice
Cardiology: Normal Sinus Rhythm, S1 and S2
Pulmonary: Other (Decreased breath sounds right base. Catheter)
GI: Soft
Extremities: Edema
Labs
Lab Results
WBC 9.3 10^3/uL (4.8-10.8) 08/18/24 07:15
RBC 4.25 10^6/uL (4.70-6.10) L 08/18/24 07:15
Hgb 13.0 g/dL (13.0-18.0) 08/18/24 07:15
Hct 38.2 % (39.0-52.0) L 08/18/24 07:15
MCV 89.9 fL (80.0-94.0) 08/18/24 07:15
MCH 30.6 pg (27.0-31.0) 08/18/24 07:15
MCHC 34.0 g/dL (33.0-37.0) 08/18/24 07:15
RDW 13.5 % (11.5-14.5) 08/18/24 07:15
Plt Count 168 10^3/uL (130-400) 08/18/24 07:15
MPV 8.7 fL (7.4-10.4) 08/18/24 07:15
Abs Immat Gran (auto) 0.0 10^3/uL (0-0.05) 08/17/24 12:25
Absolute Neuts (auto) 6.3 10^3/uL (1.4-6.5) 08/17/24 12:25
Absolute Lymphs (auto) 1.5 10^3/uL (1.2-3.4) 08/17/24 12:25
Absolute Monos (auto) 0.8 10^3/uL (0.1-0.6) H 08/17/24 12:25
Absolute Eos (auto) 0.1 10^3/uL (0-0.7) 08/17/24 12:25
Absolute Basos (auto) 0.0 10^3/uL (0-0.2) 08/17/24 12:25
Immature Gran % 0.3 % (0-0.5) 08/17/24 12:25
Neutrophils % 72.4 % (42.2-75.2) 08/17/24 12:25
Lymphocytes % 16.9 % (20.5-51.1) L 08/17/24 12:25
Monocytes % 9.3 % (1.7-9.3) 08/17/24 12:25
Eosinophils % 0.9 % (0-6) 08/17/24 12:25
Basophils % 0.2 % (0-2) 08/17/24 12:25
Creatinine 1.4 mg/dL (0.7-1.3) H 08/18/24 07:15
Diagnostic Imaging Report
Signed
Order #:[id number]
Exams: CT Head W/o Iv Contrast
CPT: 99444
PROCEDURE: CT Head W/o Iv Contrast
CLINICAL INDICATION: Change in mental status. Aphasia. Lung cancer with brain metastases.
TECHNIQUE: A CT examination of the head was performed without intravenous contrast. Coronal reformatted images were obtained. Automatic exposure control radiation dose reduction technology was utilized.
COMPARISON: Comparison is made with MRI examinations of the brain performed 07/21/2022 and 02/25/2021.
FINDINGS:
There is a 1.9 x 1.3 x 1.4 cm intraparenchymal metastasis in the periventricular left frontal lobe superior to the frontal horn of the left lateral ventricle. There is a large amount of low-attenuation vasogenic edema throughout the white matter of
the superior left frontal lobe bunch radiata and centrum semiovale surrounding the metastasis which extends into the corpus callosum. There is mass effect with effacement of some of the left frontal lobe gyri. There is mild effacement on the
frontal horn of the left lateral ventricle.
There is no midline shift or herniation. The ventricles remain midline. There is mild diffuse global cerebral and cerebellar volume loss. There is no CT evidence for acute transcortical infarct. There is moderate to severe calcific atherosclerotic
plaque in both intracranial internal carotid arteries and mild calcific atherosclerotic plaque in the intracranial vertebral arteries.
The imaged paranasal sinuses and mastoid air cells are clear. There are bilateral lens replacements in the globes.
IMPRESSION:
1. SEVERE VASOGENIC EDEMA throughout the superior LEFT FRONTAL LOBE surrounding a 1.9 cm INTRAPARENCHYMAL BRAIN METASTASIS. Marked interval increase in vasogenic edema since 07/21/2022.
2. Mild diffuse cerebral and cerebellar volume loss.
Electronically signed by Nic Bonner MD, 08/17/2024 12:27 PM
[employer] Dose Report: Up-to-date CT equipment and radiation dose reduction techniques were employed. CTDIvol: 47.8 mGy. DLP: 1059 mGy-cm.
Dictated By: Nic Bonner MD
Dictated Date & Time: 08/17/24 1220
Signed/Co-Signer By: Nic Bonner MD /
Signed/Co-Signer Date & Time: 08/17/24 1227 /
Transcribed by: Nic Bonner
Printed Date and Time: @
Vital Signs
Vital Signs
Temp Pulse Resp BP Pulse Ox
97.4 F 72 14 123/78 94
08/18/24 23:48 08/18/24 23:48 08/18/24 23:48 08/18/24 23:48 08/18/24 23:48
[2024-08-19 07:37] VITALS: BP 133/93
[2024-08-19] MEDS: LASIX 40 MG PO (08:19)
[2024-08-19] MEDS: FEOSOL 325 MG PO (08:20)
[2024-08-19] MEDS: PROTONIX PO (08:23)
[2024-08-19] MEDS: COLACE 100 MG PO (08:28)
[2024-08-19 08:40] LABS: Hematocrit 39.5 % (39.0-52.0); Hemoglobin 13.2 g/dL (13.0-18.0); Mean Corp Hgb Conc. 33.4 g/dL (33.0-37.0); Mean Corpuscular Hgb 29.4 pg (27.0-31.0); Mean Platelet Volume 9.4 fL (7.4-10.4); Platelet Count 229 10^3/uL (130-400); Red Blood Cell Count 4.49 10^6/uL (4.70-6.10); Red Cell Dist. Width 13.6 % (11.5-14.5); White Blood Cell Count 12.6 10^3/uL (4.8-10.8)
[2024-08-19 08:45] LABS: Blood Urea Nitrogen 36 mg/dl (9-20); Calcium 9.1 mg/dl (8.4-10.2); Carbon Dioxide 30 mmol/L (22-30); Chloride 103 mmol/L (98-107); Estimated Creatinine Clearance 56 ml/min; Glucose 113 mg/dl (70-99); Potassium 4.3 mmol/L (3.5-5.1); Sodium 141 mmol/L (135-145); eGFR 56.23
--- NOTE | 2024-08-19 09:57 | W.PN.HOSP.TC ---
Addendum entered and electronically signed by Salomón Yoon MD 08/19/24 14:21:
Total time spent on d/c = 32 min. This included today's physical exam, progress note, review of laboratory and diagnostic data, preparation of discharge documents and prescriptions, and discussions about the pt's hospital course and discharge plan
with the patient and other esthetician and manager medical spa involved in the patient's care.
Addendum entered and electronically signed by Salomón Yoon MD 08/19/24 10:54:
I personally performed a history and physical exam of the patient and discussed management with the resident. I reviewed the resident's note and agree with the documented findings and plan of care HPI/CC.
NAD, AAOx3, NCAT
EOMI/PERRLA, no scleral icterus
irreg/irreg, normal S1-S2
Clear to auscultate bilaterally anteriorly
Cranial nerves II 12 are intact, moves all [address] brain:
1. SEVERE VASOGENIC EDEMA throughout the superior LEFT FRONTAL LOBE surrounding a 1.9 cm INTRAPARENCHYMAL BRAIN METASTASIS. Marked interval increase in vasogenic edema since 07/21/2022.
2. Mild diffuse cerebral and cerebellar volume loss.
Acute encephalopathy:
-Likely due to vasogenic edema from metastatic lung cancer to the brain (and not likely due to Rozyltrek)
-has been on IV Decadron with improvement in mentation. Appreciate oncology. Discharge on slow Decadron taper.
-outpt f/u with ONC
B/L LE edema:
-Patient's family has noted worsening edema since he started his most recent chemotherapeutic drug
-IV Lasix given by the ER
-cont home PO Lasix
Medically cleared for d/c.
Original Note:
Today's Communication/Plan
-
IR drainage of pleural cath today, then discharge home
Assessment / Plan
Assessment / Plan
79yo M with H metastatic lung cancer with involvement of brain, who presents to ED 08/17/24 for altered mental status. History on admission obtained from sisters Julianne (medical POA) and Marielos at bedside.
Acute encephalopathy
- Likely due to vasogenic edema secondary to brain involvement of metastatic lung cancer.
- No leukocytosis on admission --> WBC 12.6 today, most likely due to steroid administration. Remains afebrile, no signs or symptoms of infection.
- ED discussed with patient's neurogeon at [place], who agrees with hospitalization and ok with DH admission.
- Started on IV decadron in ED, will continue decadron 4mg q6h while inpatient.
- Home rozlytrek held during admission given side effect profile significant for cognitive dysfunction, ataxia, fatigue, etc.
- Oncology consulted- recommended resuming rozlytrek; suspect AMS was secondary to too quick of steroid taper prior to admission as this coincides with onset of confusion and AMS. Reviewed with patient.
- PT/OT consult- recommend home health at discharge
- Stable for discharge home today with steroid taper. He has appointment tomorrow for MRI at [place], he has transportation arranged with family. Follow up appointment 08/[address] Wakefield.
Metastatic lung cancer
R pleural catheter
- Continue routine drainage of pleural catheter- due for this today. IR consulted.
- Care as above
Bilateral lower extremity edema
- Continue home lasix 40mg po qd
- Reassess prn
Urinary retention
- Difficulty urinating in ED, bladder scan notable for incomplete voiding and wing catheter placed.
- Wing discontinued 08/18/24, now voiding spontaneously
Code status: DNR- discussed with POA sister Julianne on admission, and reviewed with patient 08/18/24
Diet: Regular
VTE ppx: lovenox 40
Dispo planning: home today
Anticipated Discharge: Today
Subjective/Interval History
-
Date of Service: August 19, 2024
No acute events overnight. Feels well, significantly less confused, ready to go home. Only complaints are bed alarm and wanting to shower. Denies chest pain, shortness of breath. Tolerating PO diet, ambulating without difficulty.
Objective Data
-
Labs:
Laboratory Results
08/19/24
07:29
WBC 12.6 H
Hgb 13.2
Hct 39.5
Plt Count 229 D
Sodium 141
Potassium 4.3
Chloride 103
Carbon Dioxide 30
BUN 36 H
Creatinine 1.3
Glucose 113 H
Calcium 9.1
Vital Signs:
Vital Signs
Temp Pulse Resp BP Pulse Ox
98.1 F 76 21 133/93 94
08/19/24 07:37 08/19/24 07:37 08/19/24 07:37 08/19/24 07:37 08/19/24 07:37
I&O
08/18/24 08/19/24 08/20/24
06:59 06:59 06:59
Intake Total 360 / 360
Output Total 1700 / 1700 1455 / 1455
Balance -1700 / -1700 -1095 / -1095
Review of Systems
-
History Source: Patient
All other systems: Reviewed and negative
Physical Exam
-
General: Well Developed, Well Nourished, No Apparent Distress, Comfortable and Conversant
HEENT: Normocephalic and Atraumatic
Respiratory: Clear to Auscultation (left), Non Labored Respirations, Decreased Breath Sounds (right) and Chest Tubes (right pleural catheter present, covered by dressing)
Cardiac: Regular Rhythm and S1/S2
GI: Soft, Nontender, Nondistended and Normal Bowel Sounds
Musculoskeletal: Other (bilateral lower extremity +1 pitting edema, symmetric)
Skin: Warm and Dry
Neuro: Awake and Alert
Psych: Calm and Intact Judgement/Insight
Data Reviewed
-
Labs: Labs Reviewed by me
--- NOTE | 2024-08-19 10:37 | PN.IRAD.UPD ---
Update Note - IRAD
- -
Drained 10ml of fluid from right sided Asept. Flushed catheter with 10ml saline and aspirated it back out. Catheter does not seem to be clogged. Site redressed with gauze and a tegaderm.
Dutch Naranjo RT(R)()
[2024-08-19] MEDS: PROTONIX 40 MG PO (11:27)
--- NOTE | 2024-08-19 12:32 | W.DCSUMMARY ---
Addendum entered and electronically signed by Salomón Yoon MD 08/19/24 14:22:
Read, reviewed, and agree. See same day progress note for additional details.
Original Note:
Discharge Summary
Discharge Data
Date of Admission: 08/17/24
Date of Discharge: 08/19/24
-
Pending Results: No
Hospital Course
Discharging Physician : Dr. Villanueva, Dr. Yoon
Disposition : Home with VN
Primary care physician : Vazquez Yee
Principal Discharge diagnosis :
Acute encephalopathy secondary to vasogenic edema
Bilateral lower extremity edema
Urinary retention
Chronic Discharge diagnosis :
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
Chronic pleural effusion with indwelling R pleural catheter
Paroxysmal atrial fibrillation
Hospital Course : Presented to ED 08/17/24 for confusion, altered mental status. At that time he was minimally conversant; history on admission obtained from sisters at bedside. Head CT revealed severe vasogenic edema, and known brain metastases.
He was treated with IV steroids and his rozlytrek was held while inpatient. His cognition and communicative abilities markedly improved. He required temporary wing catheter for difficulty urinating, which resolved and he was then able to void
spontaneously. Oncology was consulted and recommended slow steroid taper and resuming rozlytrek at discharge. PT/OT was consulted and recommended home health at discharge. IR was consulted for routine drainage of his pleural catheter. On day of
discharge he was stable. He will follow up closely with his oncologist and primary care provider.
Important imaging findings :
Head CT 08/17/24
FINDINGS:
There is a 1.9 x 1.3 x 1.4 cm intraparenchymal metastasis in the periventricular left frontal lobe superior to the frontal horn of the left lateral ventricle. There is a large amount of low-attenuation vasogenic edema throughout the white matter of
the superior left frontal lobe bunch radiata and centrum semiovale surrounding the metastasis which extends into the corpus callosum. There is mass effect with effacement of some of the left frontal lobe gyri. There is mild effacement on the
frontal horn of the left lateral ventricle.
There is no midline shift or herniation. The ventricles remain midline. There is mild diffuse global cerebral and cerebellar volume loss. There is no CT evidence for acute transcortical infarct. There is moderate to severe calcific atherosclerotic
plaque in both intracranial internal carotid arteries and mild calcific atherosclerotic plaque in the intracranial vertebral arteries.
The imaged paranasal sinuses and mastoid air cells are clear. There are bilateral lens replacements in the globes.
IMPRESSION:
1. SEVERE VASOGENIC EDEMA throughout the superior LEFT FRONTAL LOBE surrounding a 1.9 cm INTRAPARENCHYMAL BRAIN METASTASIS. Marked interval increase in vasogenic edema since 07/21/2022.
2. Mild diffuse cerebral and cerebellar volume loss.
Chest xray 08/17/24
IMPRESSION:
1. LARGE LOCULATED MALIGNANT PLEURAL EFFUSION in the LATERAL RIGHT HEMITHORAX with a right chest tube remaining in place (not definitively changed from 07/11/2024).
2. Large amount of subpleural scarring and atelectasis in the right upper and middle lobes. Right lower lobe cavitary airspace consolidation which appears unchanged (probably treated lung cancer).
3. No evidence for new airspace opacity or pleural effusion in the left hemithorax.
4. Mild cardiomegaly.
Procedure findings : N/A
Discharge Plan
-
Patient Disposition: Home with Home Care
Discharge Diagnosis/Procedures: Acute encephalopathy secondary to vasogenic edema
Bilateral lower extremity edema
Urinary retention
Condition: Fair
Diet: Regular
Activity: As tolerated
Driving Restrictions: Not until seen by your Dr
Bathing Restrictions: OK to Shower
Other Services: VN
Activity Restrictions/Additional Instructions:
Continue draining your pleural catheter as you were prior to this hospitalization.
Instructions: Oral steroid medicines
Referrals:
Vazquez Yee MD [Family Provider] - in less than 1 week (Call your primary care provider to schedule follow up appointment within 1 week of hospital discharge)
Timbo Villafuerte MD [Active] - 11/05/24 (You have a follow up appointment scheduled with your regular oncologist (Dr. Wakefield) on 08/28/24. Please call their office with any questions)
Additional Discharge Medication Instructions: In the hospital you were on IV steroids. When you go home, you will continue taking steroid pills (dexamethasone 4mg). We have provided 3 prescriptions for a very slow steroid taper:
- Take 1 tablet THREE times per day for 2 weeks (until 09/01)
- Take 1 tablet TWO times per day for 2 weeks (from 09/02-09/15)
- Take 1 tablet ONE time per day for 2 weeks (from 09/16-09/29)
As discussed, you can resume taking your rozlytrek at home. Talk to your oncologist if you have questions about this medication.
You should review this plan with your oncologist at your next appointment on 08/28. They may want to update the medication plan.
Prescriptions:
New
dexamethasone 4 mg tablet
See Rx Instructions .ROUTE .COMPLEX Qty: 84 0RF
Rx Instructions:
4mg TID x2 weeks --> 4mg BID x2 weeks --> 4mg daily x2 weeks
Continued
docusate sodium [Colace] 100 MG capsule
100 mg PO BIDPRN PRN (Reason: constipation)
furosemide 40 mg Tablet
40 mg PO Daily
sennosides [Senokot] 8.6 mg Tablet
17.2 mg PO DAILYPRN PRN (Reason: constipation)
ferrous sulfate 325 mg (65 mg iron) Tablet
325 mg PO DAILY
multivitamin Tablet
1 tab PO DAILY
ondansetron 8 mg Tablet,Disintegrating
8 mg PO [id number] PRN (Reason: nausea)
pantoprazole [Protonix] 40 mg Tablet,Delayed Release (Dr/Ec)
40 mg PO DAILY
Rozlytrek 200 mg Capsule
600 mg PO DAILY
Discharge Orders:
Discharge Patient (As Directed); Ordered 08/19/24
Ordered By: Nancy Villanueva
Discharge Date and Time
Print Language: SOUTH SUDANESE
--- NOTE | 2024-08-19 13:54 | CM ---
MD entered order for discharge,
PT recommended VN .
Pt self cares for his Asept cath .
Offered VN he declined VN .
His brother Teodoro will drive him home.
PLAN Home no needs
== END 2024-08-19 14:53 | disposition home or self-care (01) | DRG 81 ==
LOC: 3 WEST ACU 17:15
PROVIDERS: Nurse Practitioner; Student in an Organized Health Care Education/Training Program; ADMITTING PHYSICIAN Internal Medicine; CONSULT PHYSICIAN Internal Medicine Hematology & Oncology; EMERGENCY PHYSICIAN Emergency Medicine; FAMILY PHYSICIAN Family Medicine
DX: G93.6 Cerebral edema (principal); C79.31 Secondary malignant neoplasm of brain; C34.31 Malignant neoplasm of lower lobe, right bronchus or lung; J91.0 Malignant pleural effusion; J98.11 Atelectasis; R47.01 Aphasia; G13.1 Other systemic atrophy primarily affecting central nervous system in neoplastic disease; Z66 Do not resuscitate; E78.00 Pure hypercholesterolemia, unspecified; E87.70 Fluid overload, unspecified; F41.9 Anxiety disorder, unspecified; I48.0 Paroxysmal atrial fibrillation; K21.9 Gastro-esophageal reflux disease without esophagitis; K59.00 Constipation, unspecified; R03.0 Elevated blood-pressure reading, without diagnosis of hypertension; R33.9 Retention of urine, unspecified; R53.83 Other fatigue; R27.0 Ataxia, unspecified; Z79.899 Other long term (current) drug therapy; Z87.891 Personal history of nicotine dependence; Z87.19 Personal history of other diseases of the digestive system; Z80.1 Family history of malignant neoplasm of trachea, bronchus and lung; Z80.8 Family history of malignant neoplasm of other organs or systems
CPT/HCPCS: 51702; 51798; 70450; 71046; 80048; 80053; 81003; 83880; 85025; 85027; 96374; 96375; 97162; 97167; 99285

== ENCOUNTER → 2024-08-29 09:33 | Outpatient (REF) | payer OTHER, SELFPAY | LOC: HWRAD 09:33 | PROVIDERS: ATTENDING PHYSICIAN Nurse Practitioner Family | DX: R79.89 Other specified abnormal findings of blood chemistry (principal) | CPT/HCPCS: 71046 ==

== ENCOUNTER → 2024-10-03 09:37 | Outpatient (REF) | payer OTHER, SELFPAY | LOC: RADI 09:37 | PROVIDERS: ATTENDING PHYSICIAN Internal Medicine Hematology & Oncology | DX: R18.8 Other ascites (principal); R14.0 Abdominal distension (gaseous); Z53.8 Procedure and treatment not carried out for other reasons | CPT/HCPCS: 76705 ==

== ENCOUNTER 2024-10-07 17:32 | Inpatient (IN) | payer OTHER, SELFPAY ==
[2024-10-07] VITALS (9 sets, daily range): BP systolic 106–162; BP diastolic 60–97; BMI 31.1; BMI 30.7
[2024-10-07 12:47] LABS: Hematocrit 39.3 % (39.0-52.0); Mean Corp Hgb Conc. 33.1 g/dL (33.0-37.0); Mean Corpuscular Hgb 31.1 pg (27.0-31.0); Platelet Count 109 10^3/uL (130-400); Red Blood Cell Count 4.18 10^6/uL (4.70-6.10); Red Cell Dist. Width 15.1 % (11.5-14.5); White Blood Cell Count 12.5 10^3/uL (4.8-10.8)
[2024-10-07 12:59] LABS: % Basophils 0.2 % (0-2); % Eosinophils 0.3 % (0-6); % Immature Granulocytes 5.7 % (0-0.5); % Lymphocytes 11.5 % (20.5-51.1); % Monocytes 5.4 % (1.7-9.3); % Neutrophils 76.9 % (42.2-75.2); Absolute Immature Granulocytes 0.7 10^3/uL (0-0.05); Absolute Lymphocytes 1.4 10^3/uL (1.2-3.4); Absolute Monocytes 0.7 10^3/uL (0.1-0.6); Absolute Neutrophils 9.6 10^3/uL (1.4-6.5); Nucleated Red Blood Cells % 0.2 % (-)
[2024-10-07 13:03] LABS: ALT (SGPT) 30 U/L (0-50); AST (SGOT) 25 U/L (17-59); Alkaline Phosphatase 83 U/L (38-126); Blood Urea Nitrogen 37 mg/dl (9-20); Calcium 8.3 mg/dl (8.4-10.2); Carbon Dioxide 36 mmol/L (22-30); Chloride 100 mmol/L (98-107); Glucose 128 mg/dl (70-99); Sodium 139 mmol/L (135-145); Total Protein 5.1 g/dl (6.3-8.2); eGFR > 60.00
[2024-10-07 13:13] LABS: NT-proBNP 383 pg/ml; Troponin I 0.013 ng/ml
--- NOTE | 2024-10-07 14:13 | ED.GENMED ---
History of Present Illness
General
Chief Complaint: Swelling
Source: patient
Exam Limitations: none
Time Seen by Provider: 10/07/24 13:55
History of Present Illness
History of Present Illness:
79 year old male presents with increased swelling in the legs and abdomen causing difficulty breathing. He has a history of lung cancer with metastasis to the brain. His history of recurrent thoracentesis now has a drain. He was at [place]
interventional radiology last week and they were unable to perform a paracentesis. He is on Lasix 40 mg twice a day. He notes his legs are oozing fluid. He denies chest pain. No urinary symptoms. No other complaints at this time
Past History
Past History
ED Past Medical History: Cancer (lung cancer), Hypercholesterolemia and Psychiatric (Anxiety); Negative IDDM
ED Past Surgical History: Negative Cardiac
Social History
Tobacco: Non-smoker
Alcohol: None
Drug: None
Personal:
Living: with family
Employment: Retired
Family History
Family History: Other (Noncontributory)
Phy Exam
Physical Exam
Physical Exam:
General: Well-appearing male no acute respiratory distress
HEENT: Normocephalic atraumatic neck is supple
Heart: Regular rate and rhythm
Lungs: Clear no wheeze
Abdomen is distended soft there is a fluid wave noted
Extremities: Significant edema to the lower extremities with oozing to the bilateral shins and subtle erythema.
Skin is warm
Neurologic exam: Alert and oriented
Scores
Heart Failure Risk
Heart Failure Risk Score: Not Applicable
Course
Orders/Labs/Results
Orders:
Orders
10/07/24 12:22
Electrocardiogram (*1) Urgent
Reason for Study: Chest Pain
EKG- Treatment ONCE
10/07/24 12:32
BNP [NT-proBNP] Urgent
Complete Blood Count/With Diff Urgent
Comprehensive Metabolic Panel Urgent
Troponin I Urgent
10/07/24 14:11
CR Chest - 2 Views Urgent
Comment:
Reason For Exam: sob
US Abdomen Limited Urgent
Reason For Exam: ascites
10/07/24 16:43
Furosemide [Lasix] 40 mg IV NOW STA
Abnormal Lab Results
10/07/24
12:32
WBC 12.5 H 10^3/uL
(4.8-10.8)
RBC 4.18 L 10^6/uL
(4.70-6.10)
MCH 31.1 H pg
(27.0-31.0)
RDW 15.1 H %
(11.5-14.5)
Plt Count 109 L 10^3/uL
(130-400)
Abs Immat Gran (auto) 0.7 H 10^3/uL
(0-0.05)
Absolute Neuts (auto) 9.6 H 10^3/uL
(1.4-6.5)
Absolute Monos (auto) 0.7 H 10^3/uL
(0.1-0.6)
Immature Gran % 5.7 H %
(0-0.5)
Neutrophils % 76.9 H %
(42.2-75.2)
Lymphocytes % 11.5 L %
(20.5-51.1)
Carbon Dioxide 36 H mmol/L
(22-30)
BUN 37 H mg/dl
(9-20)
Glucose 128 H mg/dl
(70-99)
Calcium 8.3 L mg/dl
(8.4-10.2)
Total Protein 5.1 L g/dl
(6.3-8.2)
Albumin 3.0 L g/dl
(3.5-5.0)
10/07/24 12:32
10/07/24 12:32
Vital Signs
Initial and Last Documented VS:
Initial Vital Signs
Temp Pulse Resp BP Pulse Ox
97.5 F 67 16 162/97 96
10/07/24 12:18 10/07/24 12:18 10/07/24 12:18 10/07/24 12:18 10/07/24 12:18
Last Documented Vital Signs
Temp Pulse Resp BP Pulse Ox
97.5 F 76 20 127/76 97
10/07/24 12:18 10/07/24 16:19 10/07/24 16:19 10/07/24 16:19 10/07/24 16:19
MDM/Problems Addressed
Differential Diagnosis Includes:
Anasarca. Consider CHF versus worsening progression of underlying metastatic illness. Will obtain ultrasound of abdomen and chest x-ray. Labs will be ordered. He is complaining of difficulty breathing because of the abdominal distention however
he is not hypoxic
*Critical Care Note
Total Time (30-74mins, 75-104mins- exclusive of procedures): Not Applicable
Update Note
Update Note:
Ultrasound shows minimal ascites not enough for paracentesis. Chest x-ray shows chronic findings. Patient does have volume overload. Kidney functions appear well. Will order 40 mg of Lasix and admit to hospital.
ED Attending Note
-
Portions of this chart may have been created with voice recognition software.� Occasional wrong word or��sound alike� substitutions may have occurred due to the inherent limitations of voice recognition software.
Discharge Plan
Departure
Patient Disposition: Admit
Date of Disposition: 10/07/24
Time of Disposition: 16:45
Admit to: Telemetry
Presentation/result/management discussed w/ accepting MD/DO: Hospitalist
Discharge Problem:
Volume overload
Prescriptions:
No Action
docusate sodium [Colace] 100 MG capsule
200 mg PO DAILY
furosemide 40 mg Tablet
40 mg PO Daily
sennosides [Senokot] 8.6 mg Tablet
17.2 mg PO DAILYPRN PRN (Reason: constipation)
ferrous sulfate 325 mg (65 mg iron) Tablet
325 mg PO DAILY
multivitamin Tablet
1 tab PO DAILY
pantoprazole [Protonix] 40 mg Tablet,Delayed Release (Dr/Ec)
40 mg PO DAILY
vitamin B complex [B Complete] Tablet
1 tab PO DAILY
dexamethasone 4 mg tablet
4 mg PO TID
Referrals:
Vazquez Yee MD [Family Provider] -
Interventions
Interventions:
*Risk Screen - Suicide Last Done: 10/07/24 12:18
*General Assessment Last Done: 10/07/24 12:18
*Neglect/Abuse Screening Last Done: 10/07/24 12:18
ED- Cardiac Assessment Last Done: 10/07/24 14:12
ED- Pulmonary Assessment Last Done: 10/07/24 14:12
ED-Skin Assessment Last Done: 10/07/24 14:12
Discharge Date and Time
Print Language: DIVEHI
--- NOTE | 2024-10-07 16:48 | HPS.HSE ---
Family Physician
-
Family Physician: Vazquez Yee
Chief Complaint
-
Severe lower extremity edema
Weight gain
Dyspnea on exertion
History of Present Illness
HPI: 79 year old male PMH lung cancer with brain mets s/p gamma knife, HLD, anxiety, recurrent thoracentesis s/p drain placement; presented with increased swelling in the legs and abdomen, and difficulty with breathing.
He was seen by IR the week prior and was informed that paracentesis could not be performed.
He is on Lasix 40 mg daily at home. He complains of bilateral lower extremity pain with severe edema and oozing fluid.
He denies to other symptoms
Medical History
Past Medical History
Past Medical History: Reports Arrhythmia (paroxysmal afib), Cancer (metastatic lung cancer, brain involvement), GERD and Psychiatric (anxiety)
Past Surgical History: Reports Other
Additional Past Surgical History:
paracentesis x24 from 07/2020-12/2022
L pleural catheter 11/24/22-02/13/23
R pleural catheter 02/13/23-present (required replacement and tpa/dnase 11/10/23)
gamma knife radiation treatment
Social History
Tobacco: Former Smoker
Alcohol: Occasional (social alcohol in past; no current alcohol use)
Drug: None ('experimentation' in teenage years, no IVDU)
Personal: Other ('lady friend' significant other)
Living: Alone (stays with SO -Tuesday)
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
Family History
Family History: Cancer (siblings- brain cancer, thyroid cancer, heart valve issue; father- stroke, lung/bone cancer; mother- leukemia)
Allergies / Home Medications
Allergies reflects when Allergies were last updated in [employer].
Home Medications with original date entered in [employer]
Allergy/Medication List:
Allergies
Allergy/AdvReac Type Severity Reaction Status Date / Time
Latex, Natural Rubber Allergy Unknown Hives Verified 10/07/24 12:17
adhesive Allergy Hives Verified 10/07/24 12:17
Home Medications
docusate sodium 100 mg capsule (Colace) 200 mg PO DAILY 09/07/21
furosemide 40 mg tablet 40 mg PO Daily Fluid Retention/Swelling 12/22/22
sennosides 8.6 mg tablet (Senokot) 17.2 mg PO DAILYPRN PRN constipation 12/22/22
ferrous sulfate 325 mg (65 mg iron) tablet 325 mg PO DAILY Supplement 02/01/23
multivitamin 1 tab PO DAILY Supplement 11/10/23
pantoprazole 40 mg tablet,delayed release (Protonix) 40 mg PO DAILY Gastrointestinal Issue 08/17/24
dexamethasone 4 mg tablet 4 mg PO TID Anti-inflammatory 10/07/24
vitamin B complex 1 tab PO DAILY 10/07/24
Review of Systems
-
Respiratory: Reports See HPI
Abdomen/GI: Reports See HPI
Musculoskeletal: Reports Edema
Physical Exam
Vital Signs
Vital Signs
Temp Pulse Resp BP Pulse Ox
36.4 C 76 20 127/76 97
10/07/24 12:18 10/07/24 16:19 10/07/24 16:19 10/07/24 16:19 10/07/24 16:19
Physical Exam
General: Well Developed, Well Nourished, No Apparent Distress, Conversant and Appears Chronically Ill
HEENT: NormoCephalic, Moist mucous membranes and Atraumatic; No Oxygen
Respiratory: Clear, Non Labored Respirations and Decreased Breath Sounds (R side); No Accessory Resp Muscle Use
Cardiac: S1/S2 and Regular Rhythm; No Murmur or Rub
GI: Non Tender, Normal Bowel Sounds and Distended; No Organomegaly
Rectal: Deferred by Provider
Musculoskeletal: Edema, Left Lower Extremity and Edema, Right Lower Extremity
Skin: No Rash
Neuro: Awake and Alert
Psych: Calm and Intact Judgment/Insight
Laboratory Results
-
10/07/24 12:32
10/07/24 12:32
Laboratory Results
Total Bilirubin 1.0 mg/dl (0.2-1.3) 10/07/24 12:32
AST 25 U/L (17-59) 10/07/24 12:32
ALT 30 U/L (0-50) 10/07/24 12:32
Alkaline Phosphatase 83 U/L (38-126) 10/07/24 12:32
Troponin I 0.013 ng/ml 10/07/24 12:32
Data Reviewed
-
Diagnostic Radiology: Image Personally Visualized and interpreted and Report Reviewed by me
Ultrasound: Report Reviewed by me
Lab Data: Labs Reviewed by me
Impression/Plan
-
HPI: 79 year old male PMH lung cancer with brain mets s/p gamma knife, HLD, anxiety, recurrent thoracentesis s/p drain placement; presented with increased swelling in the legs and abdomen, and difficulty with breathing.
He was seen by IR the week prior and was informed that paracentesis could not be performed.
He is on Lasix 40 mg daily at home. He complains of bilateral lower extremity pain with severe edema and oozing fluid.
He denies to other symptoms
A/P:
# Anasarca presumed due to clinical decompensation in setting of metastatic lung cancer
# Bilateral lower extremity edema
# Distended abdomen but minimal ascites on US, volume not sufficient for paracentesis.
Chest x-ray on my review no acute change, follow formal report
Cont IV Lasix, use 40 mg BID
Monitor daily weight and serum creatinine while on IV Lasix
Echo from 07/2024: EF 61%. Indeterminate diastolic function. Mildly enlarged right ventricle with normal systolic function. Color flow pattern suggestive of small PFO.
Wound care consult
For now, would hold off on oncology consult (no need)
# lung cancer with brain mets
# s/p R pleural catheter
DVT ppx: Lovenox SQ
Code status: DNR DNI, discussed with patient on admission
[2024-10-07] MEDS: LASIX 40 MG IV (17:09)
--- NOTE | 2024-10-07 18:30 | PTCARENOTE ---
10/07- Patient transferred and oriented to unit without issue. AAOX3; Generalized anasarca present. See assessment.
[2024-10-08] VITALS (7 sets, daily range): BP systolic 106–146; BP diastolic 65–81; PULSE 58; O2SAT 96; BMI 30.6
[2024-10-08 07:43] LABS: Hematocrit 39.1 % (39.0-52.0); Hemoglobin 12.7 g/dL (13.0-18.0); Mean Corp Hgb Conc. 32.5 g/dL (33.0-37.0); Mean Corpuscular Hgb 30.9 pg (27.0-31.0); Mean Corpuscular Volume 95.1 fL (80.0-94.0); Mean Platelet Volume 8.8 fL (7.4-10.4); Platelet Count 107 10^3/uL (130-400); Red Blood Cell Count 4.11 10^6/uL (4.70-6.10); Red Cell Dist. Width 15.5 % (11.5-14.5); White Blood Cell Count 11.5 10^3/uL (4.8-10.8)
[2024-10-08 08:12] LABS: Blood Urea Nitrogen 37 mg/dl (9-20); Calcium 8.1 mg/dl (8.4-10.2); Carbon Dioxide 35 mmol/L (22-30); Chloride 99 mmol/L (98-107); Estimated Creatinine Clearance 75 ml/min; Glucose 76 mg/dl (70-99); Magnesium 2.2 mg/dl (1.6-2.3); Potassium 3.4 mmol/L (3.5-5.1); Sodium 139 mmol/L (135-145); eGFR > 60.00
[2024-10-08] MEDS: FEOSOL 325 MG PO (08:57)
[2024-10-08] MEDS: LASIX 40 MG IV ×2 (08:57→15:49)
[2024-10-08] MEDS: COLACE 200 MG PO (08:57)
--- NOTE | 2024-10-08 10:18 | W.PN.HOSP.TC ---
Today's Communication/Plan
-
see bold
Assessment / Plan
Assessment / Plan
HPI: HPI: 79 year old male PMH lung cancer with brain mets s/p gamma knife, HLD, anxiety, recurrent thoracentesis s/p drain placement; presented with increased swelling in the legs and abdomen, and difficulty with breathing.
He was seen by IR the week prior and was informed that paracentesis could not be performed.
He is on Lasix 40 mg daily at home. He complains of bilateral lower extremity pain with severe edema and oozing fluid.
He denies to other symptoms
A/P:
# Anasarca presumed due to clinical decompensation in setting of metastatic lung cancer
# Bilateral lower extremity edema
# Distended abdomen but minimal ascites on US, volume not sufficient for paracentesis.
Chest x-ray on my review no acute change, follow formal report
Echo from 07/2024: EF 61%. Indeterminate diastolic function. Mildly enlarged right ventricle with normal systolic function. Color flow pattern suggestive of small PFO.
For now, would hold off on oncology consult (no need)
Continue lasix 40 mg IV BID, trend creatinine, trend daily weights
#Hypokalemia
Replete, recheck a.m. labs
#Left lower extremity wounds
Continue wound care
# Lung cancer with brain mets
# S/p R pleural catheter
DVT ppx: Lovenox SQ
Code status: DNR DNI, discussed with patient on admission
Total time spent to see the patient on the floor, examine the patient, review data and lab results, discuss treatment plan with patient, nursing staff around 45 minutes.
Physical Exam
General: No acute distress
HEENT: Normocephalic, Atraumatic, EOMI, MMM
Respiratory: Clear to Auscultation bilaterally
Cardiac: Normal S1/S2, Regular Rate and Rhythm
GI: Soft, Nontender, Nondistended, Normal Bowel Sounds
Extremities: No Clubbing, Cyanosis
Bilateral lower extremity edema noted
Neuro: Nonfocal/Grossly Intact
Psych: Calm, Cooperative
Derm:
Scattered wounds on left lower extremity, dressed
Anticipated Discharge: Within 24 hours
Subjective/Interval History
-
Date of Service: October 08, 2024
Patient reports palpitations with exertion intermittently. No chest pain, no shortness of breath. No fever, no vomiting.
Objective Data
-
Labs:
Laboratory Results
10/08/24
06:52
WBC 11.5 H
Hgb 12.7 L
Hct 39.1
Plt Count 107 L
Sodium 139
Potassium 3.4 L
Chloride 99
Carbon Dioxide 35 H
BUN 37 H
Creatinine 1.1
Glucose 76
Calcium 8.1 L
Vital Signs:
Vital Signs
Temp Pulse Resp BP Pulse Ox
98.4 F 86 20 106/65 96
10/08/24 07:35 10/08/24 07:35 10/08/24 07:35 10/08/24 07:35 10/08/24 07:35
I&O
10/07/24 10/08/24 10/09/24
06:59 06:59 06:59
Intake Total 480 / 480
Output Total 1100 / 1100
Balance -620 / -620
[2024-10-08] MEDS: KCL 40 MEQ PO ×2 (11:08→17:32)
--- NOTE | 2024-10-08 11:39 | WOUNDNOTE ---
RIGHT MEDIAL LOWER LEG
--- NOTE | 2024-10-08 11:40 | WOUNDNOTE ---
LEFT POSTERIOR LOWER LEG
--- NOTE | 2024-10-08 11:40 | WOUNDNOTE ---
POSTERIOR VIEW BILATERAL LE
--- NOTE | 2024-10-08 11:47 | WOUNDNOTE ---
WO RN NOTE: Reviewed chart and met with patient. Patient ambulating in room w/o non-slip socks or shoes. This copy writer recommended non-slip socks for safety but patient reports he cannot tolerate due to pain/discomfort when legs are touched. Patient
has multiple draining areas bilaterally and open venous appearing wound of left lower leg. UE skin intact. Patient reports worsening of swelling (+2-+3 pitting edema) over the past few weeks. He stated that [facility]ist recommended patient go to
lymphedema clinic but patient said he would not be able to tolerate the intervention. He declined use of compression. Local wound care provided as ordered. Will confirm orders with hospitalist. JIGAR Groves updated on plan.
--- NOTE | 2024-10-08 13:13 | PN.IRAD.UPD ---
Update Note - IRAD
- -
Drained 5ml of fluid from right sided Asept catheter. Catheter dressed with split gauze and a tegaderm.
Dutch Naranjo RT(R)()
--- NOTE | 2024-10-08 16:02 | CM ---
CM met with pt bedside
Pt resides alone in a split level home with 5STE and then 5 steps kayley bed/bath
He is independent with his ADLs- denies use of DMEs, drives+
Notes he is not currently receving outpt medical infusions, chemo or radiation
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
Denies financial insecurities
PCP- Vazquez Yee
Rx- Devaughn Lyon
PT/OT following with no recs at this time
CM will remains available fo dc planning
WOC consult- will follow for recs
Discharge Disposition- home, follow for WOC needs
[2024-10-09 03:16] VITALS: BP 105/63
[2024-10-09 06:00] VITALS: BMI 29.9
[2024-10-09 07:36] VITALS: BP 112/69
[2024-10-09 08:28] LABS: Hematocrit 34.9 % (39.0-52.0); Hemoglobin 11.7 g/dL (13.0-18.0); Mean Corp Hgb Conc. 33.5 g/dL (33.0-37.0); Mean Corpuscular Hgb 31.5 pg (27.0-31.0); Mean Corpuscular Volume 94.1 fL (80.0-94.0); Mean Platelet Volume 8.7 fL (7.4-10.4); Platelet Count 93 10^3/uL (130-400); Red Blood Cell Count 3.71 10^6/uL (4.70-6.10); Red Cell Dist. Width 15.4 % (11.5-14.5); White Blood Cell Count 9.6 10^3/uL (4.8-10.8)
[2024-10-09] MEDS: COLACE 200 MG PO (08:34)
[2024-10-09] MEDS: FEOSOL 325 MG PO (08:34)
[2024-10-09] MEDS: LASIX 40 MG IV ×2 (08:34→16:05)
[2024-10-09 08:45] LABS: Blood Urea Nitrogen 38 mg/dl (9-20); Calcium 7.9 mg/dl (8.4-10.2); Carbon Dioxide 32 mmol/L (22-30); Chloride 101 mmol/L (98-107); Estimated Creatinine Clearance 66 ml/min; Glucose 110 mg/dl (70-99); Magnesium 2.3 mg/dl (1.6-2.3); Phosphorus 2.9 mg/dl (2.5-4.5); Potassium 3.5 mmol/L (3.5-5.1); Sodium 137 mmol/L (135-145); eGFR > 60.00
--- NOTE | 2024-10-09 09:06 | W.PN.HOSP.TC ---
Today's Communication/Plan
-
see bold
Assessment / Plan
Assessment / Plan
HPI: HPI: 79 year old male PMH lung cancer with brain mets s/p gamma knife, HLD, anxiety, recurrent thoracentesis s/p drain placement; presented with increased swelling in the legs and abdomen, and difficulty with breathing.
He was seen by IR the week prior and was informed that paracentesis could not be performed.
He is on Lasix 40 mg daily at home. He complains of bilateral lower extremity pain with severe edema and oozing fluid.
He denies to other symptoms
A/P:
# Anasarca presumed due to clinical decompensation in setting of metastatic lung cancer
# Bilateral lower extremity edema
# Distended abdomen but minimal ascites on US, volume not sufficient for paracentesis.
Chest x-ray on my review no acute change, follow formal report
Echo from 07/2024: EF 61%. Indeterminate diastolic function. Mildly enlarged right ventricle with normal systolic function. Color flow pattern suggestive of small PFO.
For now, would hold off on oncology consult (no need)
Continue lasix 40 mg IV BID, trend creatinine, trend daily weights
Check lower extremity Dopplers for completeness sake
#Hypokalemia
Continue to replete as needed
#Left lower extremity wounds
Continue wound care
# Lung cancer with brain mets
# S/p R pleural catheter
Patient reports that only 5 mL was able to be drained on 10/08/24
Consult pulmonology
DVT ppx: Lovenox SQ
Code status: DNR DNI, discussed with patient on admission
Total time spent to see the patient on the floor, examine the patient, review data and lab results, discuss treatment plan with patient, nursing staff around 51 minutes.
Physical Exam
General: No acute distress
HEENT: Normocephalic, Atraumatic, EOMI, MMM
Respiratory: Clear to Auscultation bilaterally
Cardiac: Normal S1/S2, Regular Rate and Rhythm
GI: Soft, Nontender, Nondistended, Normal Bowel Sounds
Extremities: No Clubbing, Cyanosis
Bilateral lower extremity edema noted
Neuro: Nonfocal/Grossly Intact
Psych: Calm, Cooperative
Derm:
Scattered wounds on left lower extremity, dressed
Anticipated Discharge: 24 - 48 hours
Subjective/Interval History
-
Date of Service: October 09, 2024
Patient reports improvement in his abdominal distention and lower extremity edema. No chest pain, no shortness of breath. No fever, no vomiting.
Objective Data
-
Labs:
Laboratory Results
10/09/24
07:14
WBC 9.6
Hgb 11.7 L
Hct 34.9 L
Plt Count 93 L
Sodium 137
Potassium 3.5
Chloride 101
Carbon Dioxide 32 H
BUN 38 H
Creatinine 1.1
Glucose 110 H
Calcium 7.9 L
Vital Signs:
Vital Signs
Temp Pulse Resp BP Pulse Ox
97.8 F 75 20 112/69 98
10/09/24 07:36 10/09/24 07:36 10/09/24 07:36 10/09/24 07:36 10/09/24 07:36
I&O
10/08/24 10/09/24 10/10/24
06:59 06:59 06:59
Intake Total 480 / 480 1800 / 1800
Output Total 1100 / 1100 1800 / 1800
Balance -620 / -620 0 / 0
--- NOTE | 2024-10-09 10:13 | CON.PUL ---
Consultation
Consultation Request
Date/Time Consultation Requested: 10/09/2024-11 AM
Date/Time Consultation Performed: 10/09/2024-11:30 AM
Requesting Provider: Hospitalist
Performing Provider: Dr. Newell
Reason for Consultation: Pleurx catheter malfunction
Medical History
-
Chief Complaint: Pleurx catheter malfunction
History of Present Illness:
79-year-old male with metastatic lung cancer including brain mets stent status post gamma knife treatment on immunotherapy with recurrent need for thoracentesis status post Pleurx catheter placement presented with increasing swelling in the legs and
shortness of breath-pulmonary consulted for suspected Pleurx catheter malfunction 10/09/2024.. The patient was admitted at the end of summer, early fall with a stage and noted to have another large central nervous system metastases. He underwent
DIAN procedure at [facility]. . He also had immunotherapy changed. He was placed on high-dose steroids as well and developed progressive abdominal distention, but more so lower extremity edema. He denies any worsening shortness of breath, chest
congestion, chest pain, reflux, nausea, or focal weakness.
Past Medical History
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 Hyperlipidemia. Anxiety. Recurrent thoracenteses status post Pleurx catheter. PAF. GERD. Anxiety.)
Past Surgical History: None (Thoracenteses x 24-07/2020 through 12/2022. Left pleural catheter 11/24/2022 through. Right pleural catheter/ through present-required replacement and tPA/DNase 11/10/2023. Gamma knife radiation.)
Social History
Tobacco: Former Smoker (Less than [id number])
Alcohol: Occasional
Drug: None
Personal: Single
Living: Alone
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
Occupational Exposures: No known asbestos exposure
Environmental Exposures: No known tuberculosis exposure
Family History
Family History: Other (Sibling-brain cancer, thyroid cancer. Father-CVA, lung and bone cancer. Mother-leukemia)
Allergies / Home Medications
Allergies
Allergy/AdvReac Type Severity Reaction Status Date / Time
Latex, Natural Rubber Allergy Unknown Hives Verified 10/07/24 12:17
adhesive Allergy Hives Verified 10/07/24 12:17
Home Medications
�Medication �Instructions �Recorded �Confirmed �Last Taken �Type
docusate sodium 100 mg capsule 200 mg PO DAILY Constipation 09/07/21 10/07/24 10/06/24 History
(Colace)
furosemide 40 mg tablet 40 mg PO Daily Fluid 12/22/22 10/07/24 10/06/24 History
Retention/Swelling
sennosides 8.6 mg tablet (Senokot) 17.2 mg PO DAILYPRN PRN 12/22/22 10/07/24 11/09/23 History
constipation
ferrous sulfate 325 mg (65 mg 325 mg PO DAILY Supplement 02/01/23 10/07/24 10/06/24 History
iron) tablet
multivitamin 1 tab PO DAILY Supplement 11/10/23 10/07/24 10/06/24 History
pantoprazole 40 mg tablet,delayed 40 mg PO DAILY Gastrointestinal 08/17/24 10/07/24 10/06/24 History
release (Protonix) Issue
dexamethasone 4 mg tablet 4 mg PO TID Anti-inflammatory 10/07/24 10/07/24 10/06/24 History
vitamin B complex 1 tab PO DAILY Supplement 10/07/24 10/07/24 10/06/24 History
Review of Systems
-
Unable to Obtain full review of systems at this time due to: Other (Per HPI)
Vitals / Labs / Diagnostic Testing
Vital Signs
Temp Pulse Resp BP Pulse Ox
97.8 F 75 20 112/69 98
10/09/24 07:36 10/09/24 07:36 10/09/24 07:36 10/09/24 07:36 10/09/24 07:36
Lab Data
10/09/24 07:14
10/09/24 07:14
Microbiology
10/07/24 23:01 Nose MRSA Screen - Final
No Methicillin Resistant Staphylococcus aureus isolated.
Diagnostic Testing:
Physical Exam
-
Exam:
Well-nourished and well-developed in no apparent distress
HEENT-atraumatic, normocephalic
Neck-supple, no JVD, no bruit
Heart-regular rate and rhythm-no murmurs, rubs or gallops
Chest with diminished breath sounds at both bases with rare crackles
Back without tenderness
Abdomen-soft, nontender, nondistended, no hepatosplenomegaly
Extremities-no cyanosis, clubbing, significant lower extremity edema
Integument-intact, no rashes, lesions or ecchymosis
Neurology-alert and oriented, nonfocal motor and sensory exam
Assessment
-
79-year-old male with metastatic lung cancer including brain mets stent status post gamma knife treatment on immunotherapy with recurrent need for thoracentesis status post Pleurx catheter placement presented with increasing swelling in the legs and
shortness of breath-pulmonary consulted for suspected Pleurx catheter malfunction 10/09/2024.
.
Recurrent pleural effusion with right Pleurx catheter-minimal drainage,? Malfunction were no longer pleural fluid
Bilateral lower extremity edema
Abdominal distention with minimal ascites on ultrasound not sufficient for paracentesis
Metastatic lung cancer with brain mets
Recurrent pleural effusions status post Pleurx catheters
Vbvkmn-okszifvytd-jjmmobclko 11.7.
Thrombocytopenia-platelets 93
Conditions present prior to admission:
Metastatic non-small cell lung cancer with brain mets/gamma knife/DIAN procedure/immunotherapy-Xalkori and now new agent Rozlytek
Hyperlipidemia.
Anxiety.
Recurrent thoracenteses status post Pleurx catheter.
PAF.
GERD.
Anxiety.
Thoracenteses x 24-07/2020 through 12/2022. Left pleural catheter 11/24/2022 through. Right pleural catheter/ through present-required replacement and tPA/DNase 11/10/2023. Gamma knife radiation.
Plan
No respiratory compromise despite chronic loculated moderate to large pleural effusion-Pleurx catheter not draining significant amounts-50 mL 3 times a week.
Supplemental oxygen as needed.
Incentive spirometry.
Nebulizers if needed-currently not bronchospastic.
Aspiration precautions.
Interventional radiology consulted-evaluate Pleurx catheter-? TPA/DNase, catheter unclogging, or possibly even removal.
Not significant drainage, then consideration towards Pleurx catheter removal.
Would obtain CT chest before Pleurx catheter removal.
He would love Pleurx catheter removed as then he could play golf which she loves him. Currently, the Pleurx catheter is hindering him from playing.
Diuresis as tolerated.
Lower extremity edema may be related to combination of high-dose steroids. She was as well as new dhnvf-clkgytbgbrvjy-Myqilfjn.
Has the patient had bilateral lower extremity ultrasounds to rule out DVT?
DVT prophylaxis-On Lovenox.
Nutrition
Physical therapy
The patient was last seen by Dr. Newell 05/02/2024 and has an appointment 11/29/2024
Diagnostic data:
Chest x-ray 10/07/24-right pleural catheter present with moderate to large right pleural effusion with superior loculation
Abdominal ultrasound 10/07/24-minimal ascites
Spirometry 12/02/20-FEV1 2.14 L-59%, FVC 2.96 L-60%, no significant BD response. Moderate restriction.
PFT 04/01/21-FEV1 2.93 L-80%, FVC 4.00 L-80%, TLC 74%, RV 63%, DLCO 78%. Mild restriction and mild reduction in diffusing capacity.Spirometry 08/26/21-FEV1 2.69 L-75%, FVC 2.36 L-60%, no significant BD response. Moderate restriction.
Spirometry 04/07/22-FEV1 2.13 L-59%, FVC 2.69 L-55%. No significant BD response. Moderate restriction.
PFT 06/07/22-FEV1 2.15 L-61%, FVC 2.79 L 57%, TLC 58%, RV percent, DLCO 66%. Moderate restriction and moderate reduction in diffusing capacity.
Spirometry 10/26/22-FEV1 1.13 L, 32%, FVC 1.47 L-30, 13% improvement FEV1 postbronchodilator. Severe restriction.
Spirometry 08/16/23-FEV1 1.98-56%, FVC 2.55-53%, no significant BD response. Moderate restriction.
PFT 11/01/23-FEV1 2.28-60%, FVC 3.05-66%, no significant BD response, TLC 54%, RV 33%, DLCO 60%, DLCO/VA 118%. Moderate restriction.Spirometry 05/02/24-FEV1 2.1-61%, FVC 2.77-50%, no significant BD response.� Moderate restriction.
6 minute walk test-08/14/2020- RA saturation of 96%, HR 95 bpm, Ambulated 840 feet. Patient maintained 94-95% on RA.6 minute walk test 12/02/20-Ambulated 900 feet with desaturation benny of 96%. The maximum heart rate of 104. No supplemental oxygen
required.6 minute walk test 04/07/22-Ambulate 1425 feet with 93% and maximum heart rate of 121. Maximum dyspnea is no supplemental oxygen needed.6 minute walk test 11/01/23-Ambulate 1350 feet with desaturation benny 98% and maximum heart rate of
117.Dyspnea scale score 0.5. No supplemental option required.
FeNO 12/02/20- 8ppbFeNO 06/07/22- 14 ppb
FeNO 11/01/23- 14 ppb.RADIOGRAPHIC STUDIES:������
PET scan 08/21/20 whole body-Dr. Newell reviewed with patient over phone-confluent FDG uptake associated with prior cold opacification in central right upper lobe slightly greater than central right lower lobe either or both could represent
patient's primary FDG avid malignancy, uptake also noted right hilum, subcarinal mediastinum and high right paratracheal mediastinum also suspicious for malignancy and superficial soft tissue FDG uptake posterior inferior chest wall where
thoracentesis was performed and positive for adenocarcinoma, specifically no head, neck, abdomen, pelvis or osseous metastatic disease noted-reports faxed to Dr. Wakefield-patient to see 08/25/20
PET scan 07/11/24-no suspicious FDG avid lesions in the lungs, stable loculated moderate right pleural effusion with FDG avid adjacent pleural thickening max SUV 4.9, previously 4.1, no suspicious skeletal lesions, no convincing evidence of FDG avid
or recurrent metastatic disease
CT chest 08/07/2020- confluent airspace opacity in the right lower lobe and tree-in-bud opacities throughout portions of the right upper and middle lobes indicating pneumonia. An underlying mass cannot be definitively excluded. Moderate right
pleural effusion.Chest x-hjz-Eeigmqsk right pleural effusion following thoracentesis without pneumothorax. Possible 2.2 cm nodular opacity projecting over the right midlung zone.thoracentesis 08/07/2020. Successful right dorsum teases yielding 2000
and also blood tinged pleural fluid.cytology consistent with adenocarcinoma.
CXR 08/06/2020- New large right pleural effusion and right basilar airspace consolidation.
CXR 07/10/2020- Confluent right middle lobe airspace opacity, suspect pneumonia.
Chest x-ray 11/13/20-no pneumothorax following thoracentesis, interval improvement in previous right pleural effusion, left lung clear.
PET scan 11/17/20-No suspicious FDG avid lesionsPET scan 03/06/21-Continued interval decrease in bulk of confluent right perihilar soft tissue without significant FDG activity consistent with continued positive interval response to therapy, no new
enlarged or suspicious FDG avid lesions, moderate right pleural effusion without associated FDG activity.Thoracentesis 03/30/21--2000 mL straw-colored fluidThoracentesis 11/13/2054-ahkgr-ybvlu thoracentesis -2000 mL straw-colored fluid
Chest x-ray 03/30/21-no pneumothorax post right thoracentesis
Thoracentesis 08/03/21--1400 mL straw-colored fluidChest x-ray 08/03/21-No pneumothorax following right thoracentesis
PET scan 08/05/21-moderate sized malignant right pleural effusion surrounded by pleural metastases which appear unchanged, large density right lower lobe consolidation does not demonstrate increased FDG uptake, no evidence for new FDG or metastatic
disease
Thoracentesis 09/07/21--1250 mL, no studies performed.
Thoracentesis 10/06/21--950 mL, no studies performed.
Thoracentesis 01/25/22--1800 mL bloody pleural fluid.PET scan 01/27/22-moderate size malignant right pleural effusion surrounded by treated pleural metastases, large dense right lower lobe airspace consolidation demonstrating moderate FDG uptake is
increased since 07/2021 and could be malignant, infectious or inflammatory, no evidence for FDG avid metastasis inside the abdomen, pelvis or skeleton.
Thoracentesis 02/22/22--1275 mL hemorrhagic pleural fluid
Thoracentesis 03/24/22--250 mL bloody pleural fluid evacuation
Chest x-ray 03/24/22-no evidence for pneumothorax, loculated right pleural effusionBrain MRI 07/21/22-New bilateral metastatic disease to 5 areas
PET scan-07/28/22-Extremely large right pleural effusion. Fluid was not FDG avid, significant increase in size/migraine from prior PET scan with minimal/mild FDG uptake associated with the caudal area of pleural thickening, no new suspicious focus of
FDG uptake
Chest x-ray 10/19/22-progressive opacification right hemithorrax which is now complete consistent with progressive pleural effusion
CT chest 11/01/22-Right pleural effusion, significantly improved compared to CT 10/27/22, loculated right pleural effusion seen. Posterior inferior to the existing chest tube tip small in size, simple-appearing left pleural effusion associated with left
basilar subsegmental atelectasis, moderate coronary artery calcifications.
Thoracentesis 11/02/22-removal 1100 mL cloudy yellow pleural fluid-Left side.
Thoracentesis 11/16/22-Removal of 1500 mL straw-colored pleural fluid from the left
Tunnel pleural catheter placement 11/24/22 on the left side .CT chest 01/26/23-large complex loculated right pleural effusion associated with pleural thickening, right lung is compressed medially with suspected atelectasis, right to left shift, tunneled
left-sided pleural catheter in appropriate position, small left pleural effusion,-patient notified-Dr. Newell reviewed with interventional radiology-Pleurx catheter on the left may be removed and a catheter may be placed on the right for complete
drainage
CT chest 04/25/23-Right pleural catheter in place, persistent though smaller right loculated pleural effusion, right base atelectasis, trace residual left pleural effusion, no apparent hilar or mediastinal adenopathy, interval development of anterior
left seventh through ninth rib fractures.
PET scan 07/28/23-Chronic loculated malignant right pleural effusion with hypermetabolic pleural thickening with increased FDG activity compared to PET scan January 2023, SUV max 4.8-was 3.5,mild hypermetabolic trace left pleural effusion decreased in
size, SUV 2.2-was 3.[address] chest 11/08/23-chronic loculated malignant right pleural effusion, significantly decreased in the amount of fluid and now air filled cavity, catheter remains in similar location in the loculated pleural fluid is now irregular air filled cavity
with air and locules of fluid, slight decrease in size of layering pleural effusion at the right lung base, improved aeration of the residual right lung compared to the most recent PET scan, no change in the compressive atelectasis and scarring,
significant improvement in aeration of the left lung base with minimal residual pleural thickening and loculated fluid, no apparent hilar or mediastinal adenopathy-patient notified-Meeting with interventional radiology for catheter exchange 11/10/23 .
TPA/DNase injection into ASEPT catheter 11/10/23
PET scan 02/08/24-Dr. Wakefield-no evidence of FDG malignancy, metastases or adenopathy, large, thick wall partially loculated right-sided pleural effusion with internal fluid.� Pleural drainage catheter and 4 cm confluent parenchymal mass which may
be atelectasis or treated neoplasm and it is not significantly FDG avid measuring 3.4, SUV.CARDIAC STUDIES:������
Echocardiogram 04/04/21-EF 55-60%, no significant valvular disease, Normal diastolic functionEchocardiogram 10/28/22-, EF 55-60%, mild mitral regurgitation
�
Eosinophils 08/07/20-200Pleural fluid cytology 08/07/20-Positive cytology, HER-2 amplification positive, ROS 1 rearrangement positive, negative for EGFR, ALK, MET, RET
Pleural fluid cyt ology 10/14/20-positive for malignant cells, Morphology similar to that present in previous right pleural fluid cytology.Hemoglobin 11/01/22-11.1.Pleural fluid cytology-right side-10/28/22-negative for malignant cells.
Pleural fluid cytology-left side 11/02/22-negative for malignant cells .
Pleural fluid from ASEPT right 05/10/23-no growth, cultures negative, negative for malignant cells .
Pleural fluid from right ASEPT catheter 05/06/23-Obtained after patient completed ciprofloxacin-persistent exudate-LDH 18,000, WBC 13,000, pH 7.0, cultures pending-removal of catheter recommended-patient reluctant-we'll obtain infectious disease
consultation-atraumatic medication with interventional radiology .
Pleurx catheter culture 04/24/2023-many WBCs, Rare Enterobacter-Resistant to amoxicillin and ampicillin/sulbactam-otherwise pansensitive-patient notified-recommended ciprofloxacin 500 mg twice daily for 14 days, infectious disease consultation and
Pleurx catheter removal .
Pleural fluid cultures 04/06/23-many Enterobacter cloacae-resistant to Augmentin, ampicillin, cefazolin and sensitive to cefepime, cefotaxime, ceftriaxone, ciprofloxacin, gentamicin, levofloxacin, meropenem, Zosyn, tobramycin and Bactrim.
Data Reviewed
-
PFT: Tracing personally visualized and interpreted and Report reviewed by me
EKG: Report reviewed by me
Radiology: Image personally visualized and interpreted and Report reviewed by me
CT Scan: Image personally visualized and interpreted and Report reviewed by me
MRI: Image personally visualized and interpreted and Report reviewed by me
Medical Tests (Nuc Med, Echo etc): Image personally visualized and interpreted and Report reviewed by me
Labs: Labs reviewed by me
Old Records: Reviewed
Total Time Spent with Patient (in minutes): 65
[2024-10-09 11:35] VITALS: BP 126/67
[2024-10-09 15:14] VITALS: BP 132/70
[2024-10-09] MEDS: KCL 40 MEQ PO ×2 (16:05→21:17)
[2024-10-09 19:46] VITALS: BP 116/59
[2024-10-09 23:15] VITALS: BP 102/66
[2024-10-10] VITALS (7 sets, daily range): BP systolic 98–123; BP diastolic 49–78; BMI 30.3
[2024-10-10 07:35] LABS: Hematocrit 36.2 % (39.0-52.0); Hemoglobin 12.6 g/dL (13.0-18.0); Mean Corp Hgb Conc. 34.8 g/dL (33.0-37.0); Mean Corpuscular Volume 91.9 fL (80.0-94.0); Mean Platelet Volume 8.7 fL (7.4-10.4); Platelet Count 105 10^3/uL (130-400); Red Blood Cell Count 3.94 10^6/uL (4.70-6.10); Red Cell Dist. Width 15.5 % (11.5-14.5); White Blood Cell Count 9.7 10^3/uL (4.8-10.8)
[2024-10-10] MEDS: FEOSOL 325 MG PO (07:44)
[2024-10-10] MEDS: LASIX 40 MG IV (07:44)
[2024-10-10] MEDS: COLACE 200 MG PO (07:44)
[2024-10-10 08:16] LABS: Blood Urea Nitrogen 36 mg/dl (9-20); Calcium 8.1 mg/dl (8.4-10.2); Carbon Dioxide 34 mmol/L (22-30); Chloride 99 mmol/L (98-107); Estimated Creatinine Clearance 68 ml/min; Glucose 87 mg/dl (70-99); Potassium 3.9 mmol/L (3.5-5.1); Sodium 136 mmol/L (135-145); eGFR > 60.00
--- NOTE | 2024-10-10 09:07 | W.PN.HOSP.TC ---
Today's Communication/Plan
-
see bold
Assessment / Plan
Assessment / Plan
HPI: HPI: 79 year old male PMH lung cancer with brain mets s/p gamma knife, HLD, anxiety, recurrent thoracentesis s/p drain placement; presented with increased swelling in the legs and abdomen, and difficulty with breathing.
He was seen by IR the week prior and was informed that paracentesis could not be performed.
He is on Lasix 40 mg daily at home. He complains of bilateral lower extremity pain with severe edema and oozing fluid.
He denies to other symptoms
A/P:
# Anasarca presumed due to clinical decompensation in setting of metastatic lung cancer
# Bilateral lower extremity edema
# Distended abdomen but minimal ascites on US, volume not sufficient for paracentesis.
Chest x-ray on my review no acute change, follow formal report
Lower extremity Dopplers negative for DVT
Echo from 07/2024: EF 61%. Indeterminate diastolic function. Mildly enlarged right ventricle with normal systolic function. Color flow pattern suggestive of small PFO.
For now, would hold off on oncology consult (no need)
Continue lasix 40 mg IV BID, trend creatinine, trend daily weights
#Hypokalemia
Repleted and resolved
#Left lower extremity wounds
Continue wound care
# Lung cancer with brain mets
# Loculated right pleural effusion s/p R pleural catheter
Patient reports that only 5 mL was able to be drained on 10/08/24
Appreciate pulmonology input, status post tPA 10/10
Monitor chest tube output
DVT ppx: Lovenox SQ
Code status: DNR DNI, discussed with patient on admission
Total time spent to see the patient on the floor, examine the patient, review data and lab results, discuss treatment plan with patient, nursing staff around 41 minutes.
Physical Exam
General: No acute distress
HEENT: Normocephalic, Atraumatic, EOMI, MMM
Respiratory: Clear to Auscultation bilaterally
Cardiac: Normal S1/S2, Regular Rate and Rhythm
GI: Soft, Nontender, Nondistended, Normal Bowel Sounds
Extremities: No Clubbing, Cyanosis
Bilateral lower extremity edema noted
Neuro: Nonfocal/Grossly Intact
Psych: Calm, Cooperative
Derm:
Scattered wounds on left lower extremity, dressed
Anticipated Discharge: 24 - 48 hours
Subjective/Interval History
-
Date of Service: October 10, 2024
No chest pain, no shortness of breath, no palpitations. Reports abdominal distention and lower extremity edema is improving. No fever, no vomiting.
Objective Data
-
Labs:
Laboratory Results
10/10/24
06:41
WBC 9.7
Hgb 12.6 L
Hct 36.2 L
Plt Count 105 L
Sodium 136
Potassium 3.9
Chloride 99
Carbon Dioxide 34 H
BUN 36 H
Creatinine 1.2
Glucose 87
Calcium 8.1 L
Vital Signs:
Vital Signs
Temp Pulse Resp BP Pulse Ox
97.9 F 89 18 115/72 99
10/10/24 07:38 10/10/24 07:38 10/10/24 07:38 10/10/24 07:38 10/10/24 07:38
I&O
10/09/24 10/10/24 10/11/24
06:59 06:59 06:59
Intake Total 1800 / 1800 0 / 0
Output Total 1800 / 1800 0 / 2300
Balance 0 / 0 -380 / -380
--- NOTE | 2024-10-10 09:53 | W.PN.PUL.V3 ---
Today's Communication / Plan
-
tPA/DNase
Monitor chest tube output
Diuresis as tolerated
Assessment
-
79-year-old male with metastatic lung cancer including brain mets stent status post gamma knife treatment on immunotherapy with recurrent need for thoracentesis status post Pleurx catheter placement presented with increasing swelling in the legs and
shortness of breath-pulmonary consulted for suspected Pleurx catheter malfunction 10/09/2024.
.
Recurrent pleural effusion with right Pleurx catheter-minimal drainage,? Malfunction were no longer pleural fluid
Bilateral lower extremity edema
Abdominal distention with minimal ascites on ultrasound not sufficient for paracentesis
Metastatic lung cancer with brain mets
Recurrent pleural effusions status post Pleurx catheters
Caygwx-ohiypyrwpr-jambtpepve 11.7.
Thrombocytopenia-platelets 93
Conditions present prior to admission:
Metastatic non-small cell lung cancer with brain mets/gamma knife/DIAN procedure/immunotherapy-Xalkori and now new agent Rozlytek
Hyperlipidemia.
Anxiety.
Recurrent thoracenteses status post Pleurx catheter.
PAF.
GERD.
Anxiety.
Thoracenteses x 24-07/2020 through 12/2022. Left pleural catheter 11/24/2022 through. Right pleural catheter/ through present-required replacement and tPA/DNase 11/10/2023. Gamma knife radiation.
Plan
No respiratory compromise despite chronic loculated moderate to large pleural effusion-Pleurx catheter not draining significant amounts-50 mL 3 times a week.
Supplemental oxygen as needed.
Incentive spirometry.
Nebulizers if needed-currently not bronchospastic.
Aspiration precautions.
Interventional radiology consulted-evaluate Pleurx catheter
CT chest 10/09/2024-overall size of loculated right pleural collection remains essentially stable, fluid like occupies the cavity and percutaneous drainage catheter remains situated within the collection
Try tPA/DNase 10/10/2024-reviewed with interventional radiology
If he continues to have minimal pleural fluid output consideration towards no drainage for 2-[address] chest-if loculated pleural fluid does not increase then consideration towards Pleurx catheter removal-Dr. Newell has discussed
this with patient as well as interventional radiology
He would love Pleurx catheter removed as then he could play golf which she loves him. Currently, the Pleurx catheter is hindering him from playing.
Diuresis continues as tolerated
Lower extremity edema may be related to combination of high-dose steroids-also was placed on new shzxj-awoknnnzsrkoy-Yfpzrmgy.
Lower extremity ultrasound 10/09/2024-no evidence for right or left lower extremity DVT
DVT prophylaxis-On Lovenox.
Nutrition
Physical therapy
The patient was last seen by Dr. Newell 05/02/2024 and has an appointment 11/29/2024
Diagnostic data:
Chest x-ray 10/07/24-right pleural catheter present with moderate to large right pleural effusion with superior loculation
Abdominal ultrasound 10/07/24-minimal ascites
Spirometry 12/02/20-FEV1 2.14 L-59%, FVC 2.96 L-60%, no significant BD response. Moderate restriction.
PFT 04/01/21-FEV1 2.93 L-80%, FVC 4.00 L-80%, TLC 74%, RV 63%, DLCO 78%. Mild restriction and mild reduction in diffusing capacity.Spirometry 08/26/21-FEV1 2.69 L-75%, FVC 2.36 L-60%, no significant BD response. Moderate restriction.
Spirometry 04/07/22-FEV1 2.13 L-59%, FVC 2.69 L-55%. No significant BD response. Moderate restriction.
PFT 06/07/22-FEV1 2.15 L-61%, FVC 2.79 L 57%, TLC 58%, RV percent, DLCO 66%. Moderate restriction and moderate reduction in diffusing capacity.
Spirometry 10/26/22-FEV1 1.13 L, 32%, FVC 1.47 L-30, 13% improvement FEV1 postbronchodilator. Severe restriction.
Spirometry 08/16/23-FEV1 1.98-56%, FVC 2.55-53%, no significant BD response. Moderate restriction.
PFT 11/01/23-FEV1 2.28-60%, FVC 3.05-66%, no significant BD response, TLC 54%, RV 33%, DLCO 60%, DLCO/VA 118%. Moderate restriction.Spirometry 05/02/24-FEV1 2.1-61%, FVC 2.77-50%, no significant BD response.� Moderate restriction.
6 minute walk test-08/14/2020- RA saturation of 96%, HR 95 bpm, Ambulated 840 feet. Patient maintained 94-95% on RA.6 minute walk test 12/02/20-Ambulated 900 feet with desaturation benny of 96%. The maximum heart rate of 104. No supplemental oxygen
required.6 minute walk test 04/07/22-Ambulate 1425 feet with 93% and maximum heart rate of 121. Maximum dyspnea is no supplemental oxygen needed.6 minute walk test 11/01/23-Ambulate 1350 feet with desaturation benny 98% and maximum heart rate of
117.Dyspnea scale score 0.5. No supplemental option required.
FeNO 12/02/20- 8ppbFeNO 06/07/22- 14 ppb
FeNO 11/01/23- 14 ppb.RADIOGRAPHIC STUDIES:������
PET scan 08/21/20 whole body-Dr. Newell reviewed with patient over phone-confluent FDG uptake associated with prior cold opacification in central right upper lobe slightly greater than central right lower lobe either or both could represent
patient's primary FDG avid malignancy, uptake also noted right hilum, subcarinal mediastinum and high right paratracheal mediastinum also suspicious for malignancy and superficial soft tissue FDG uptake posterior inferior chest wall where
thoracentesis was performed and positive for adenocarcinoma, specifically no head, neck, abdomen, pelvis or osseous metastatic disease noted-reports faxed to Dr. Wakefield-patient to see 08/25/20
PET scan 07/11/24-no suspicious FDG avid lesions in the lungs, stable loculated moderate right pleural effusion with FDG avid adjacent pleural thickening max SUV 4.9, previously 4.1, no suspicious skeletal lesions, no convincing evidence of FDG avid
or recurrent metastatic disease
CT chest 08/07/2020- confluent airspace opacity in the right lower lobe and tree-in-bud opacities throughout portions of the right upper and middle lobes indicating pneumonia. An underlying mass cannot be definitively excluded. Moderate right
pleural effusion.Chest g-eyo-Padaerls right pleural effusion following thoracentesis without pneumothorax. Possible 2.2 cm nodular opacity projecting over the right midlung zone.thoracentesis 08/07/2020. Successful right dorsum teases yielding 2000
and also blood tinged pleural fluid.cytology consistent with adenocarcinoma.
CXR 08/06/2020- New large right pleural effusion and right basilar airspace consolidation.
CXR 07/10/2020- Confluent right middle lobe airspace opacity, suspect pneumonia.
Chest x-ray 11/13/20-no pneumothorax following thoracentesis, interval improvement in previous right pleural effusion, left lung clear.
PET scan 11/17/20-No suspicious FDG avid lesionsPET scan 03/06/21-Continued interval decrease in bulk of confluent right perihilar soft tissue without significant FDG activity consistent with continued positive interval response to therapy, no new
enlarged or suspicious FDG avid lesions, moderate right pleural effusion without associated FDG activity.Thoracentesis 03/30/21--2000 mL straw-colored fluidThoracentesis 11/13/2094-tiheo-praah thoracentesis -2000 mL straw-colored fluid
Chest x-ray 03/30/21-no pneumothorax post right thoracentesis
Thoracentesis 08/03/21--1400 mL straw-colored fluidChest x-ray 08/03/21-No pneumothorax following right thoracentesis
PET scan 08/05/21-moderate sized malignant right pleural effusion surrounded by pleural metastases which appear unchanged, large density right lower lobe consolidation does not demonstrate increased FDG uptake, no evidence for new FDG or metastatic
disease
Thoracentesis 09/07/21--1250 mL, no studies performed.
Thoracentesis 10/06/21--950 mL, no studies performed.
Thoracentesis 01/25/22--1800 mL bloody pleural fluid.PET scan 01/27/22-moderate size malignant right pleural effusion surrounded by treated pleural metastases, large dense right lower lobe airspace consolidation demonstrating moderate FDG uptake is
increased since 07/2021 and could be malignant, infectious or inflammatory, no evidence for FDG avid metastasis inside the abdomen, pelvis or skeleton.
Thoracentesis 02/22/22--1275 mL hemorrhagic pleural fluid
Thoracentesis 03/24/22--250 mL bloody pleural fluid evacuation
Chest x-ray 03/24/22-no evidence for pneumothorax, loculated right pleural effusionBrain MRI 07/21/22-New bilateral metastatic disease to 5 areas
PET scan-07/28/22-Extremely large right pleural effusion. Fluid was not FDG avid, significant increase in size/migraine from prior PET scan with minimal/mild FDG uptake associated with the caudal area of pleural thickening, no new suspicious focus of
FDG uptake
Chest x-ray 10/19/22-progressive opacification right hemithorrax which is now complete consistent with progressive pleural effusion
CT chest 11/01/22-Right pleural effusion, significantly improved compared to CT 10/27/22, loculated right pleural effusion seen. Posterior inferior to the existing chest tube tip small in size, simple-appearing left pleural effusion associated with left
basilar subsegmental atelectasis, moderate coronary artery calcifications.
Thoracentesis 11/02/22-removal 1100 mL cloudy yellow pleural fluid-Left side.
Thoracentesis 11/16/22-Removal of 1500 mL straw-colored pleural fluid from the left
Tunnel pleural catheter placement 11/24/22 on the left side .CT chest 01/26/23-large complex loculated right pleural effusion associated with pleural thickening, right lung is compressed medially with suspected atelectasis, right to left shift, tunneled
left-sided pleural catheter in appropriate position, small left pleural effusion,-patient notified-Dr. Newell reviewed with interventional radiology-Pleurx catheter on the left may be removed and a catheter may be placed on the right for complete
drainage
CT chest 04/25/23-Right pleural catheter in place, persistent though smaller right loculated pleural effusion, right base atelectasis, trace residual left pleural effusion, no apparent hilar or mediastinal adenopathy, interval development of anterior
left seventh through ninth rib fractures.
PET scan 07/28/23-Chronic loculated malignant right pleural effusion with hypermetabolic pleural thickening with increased FDG activity compared to PET scan January 2023, SUV max 4.8-was 3.5,mild hypermetabolic trace left pleural effusion decreased in
size, SUV 2.2-was 3.[address] chest 11/08/23-chronic loculated malignant right pleural effusion, significantly decreased in the amount of fluid and now air filled cavity, catheter remains in similar location in the loculated pleural fluid is now irregular air filled cavity
with air and locules of fluid, slight decrease in size of layering pleural effusion at the right lung base, improved aeration of the residual right lung compared to the most recent PET scan, no change in the compressive atelectasis and scarring,
significant improvement in aeration of the left lung base with minimal residual pleural thickening and loculated fluid, no apparent hilar or mediastinal adenopathy-patient notified-Meeting with interventional radiology for catheter exchange 11/10/23 .
TPA/DNase injection into ASEPT catheter 11/10/23
PET scan 02/08/24-Dr. Wakefield-no evidence of FDG malignancy, metastases or adenopathy, large, thick wall partially loculated right-sided pleural effusion with internal fluid.� Pleural drainage catheter and 4 cm confluent parenchymal mass which may
be atelectasis or treated neoplasm and it is not significantly FDG avid measuring 3.4, SUV.CARDIAC STUDIES:������
Echocardiogram 04/04/21-EF 55-60%, no significant valvular disease, Normal diastolic functionEchocardiogram 10/28/22-, EF 55-60%, mild mitral regurgitation
�
Eosinophils 08/07/20-200Pleural fluid cytology 08/07/20-Positive cytology, HER-2 amplification positive, ROS 1 rearrangement positive, negative for EGFR, ALK, MET, RET
Pleural fluid cyt ology 10/14/20-positive for malignant cells, Morphology similar to that present in previous right pleural fluid cytology.Hemoglobin 11/01/22-11.1.Pleural fluid cytology-right side-10/28/22-negative for malignant cells.
Pleural fluid cytology-left side 11/02/22-negative for malignant cells .
Pleural fluid from ASEPT right 05/10/23-no growth, cultures negative, negative for malignant cells .
Pleural fluid from right ASEPT catheter 05/06/23-Obtained after patient completed ciprofloxacin-persistent exudate-LDH 18,000, WBC 13,000, pH 7.0, cultures pending-removal of catheter recommended-patient reluctant-we'll obtain infectious disease
consultation-atraumatic medication with interventional radiology .
Pleurx catheter culture 04/24/2023-many WBCs, Rare Enterobacter-Resistant to amoxicillin and ampicillin/sulbactam-otherwise pansensitive-patient notified-recommended ciprofloxacin 500 mg twice daily for 14 days, infectious disease consultation and
Pleurx catheter removal .
Pleural fluid cultures 04/06/23-many Enterobacter cloacae-resistant to Augmentin, ampicillin, cefazolin and sensitive to cefepime, cefotaxime, ceftriaxone, ciprofloxacin, gentamicin, levofloxacin, meropenem, Zosyn, tobramycin and Bactrim.
Subjective Data
-
Date of Service:
Date of Service: October 10, 2024
Chief Complaint: Pulmonary Follow Up and Dyspnea Follow Up
Subjective:
No complaints of worsening shortness of breath, no chest pain or abdominal pain
Review of Systems
General: Other ( Per HPI)
Objective Data
Data Reviewed
Vital Signs / I&O:
Vital Signs
Temp Pulse Resp BP Pulse Ox
97.9 F 89 18 115/72 99
10/10/24 07:38 10/10/24 07:38 10/10/24 07:38 10/10/24 07:38 10/10/24 07:38
Intake and Output
10/09/24 10/10/24 10/11/24
06:59 06:59 06:59
Intake Total 1800 / 1800 1920 / 1920
Output Total 1800 / 1800 2300 / 2300
Balance 0 / 0 -380 / -380
SaO2: 99
Physical Exam
General: Respiratory Distress (n) and Comfortable
HEENT: Normocephalic, Anicteric and Moist Mucous Membranes
Cardiovascular: Regular Rhythm and Peripheral Edema (+1-2 bilateral lower extremity)
Respiratory: Clear (Diminished breath sounds right base), Wheeze (n), Crackles (n), Rhonchi (n), Non-Labored Respirations, Accessory Resp Muscle Use (n) and Stridor (n)
GI: Soft, Non Distended and Non Tender
Neurology: Awake, Alert and No Motor Deficits
Skin: Warm, Good Color, Cyanosis (n) and Jaundice (n)
Labs/Micro/Reports
Lab Data
10/10/24 06:41
10/10/24 06:41
Microbiology
10/07/24 23:01 Nose MRSA Screen - Final
No Methicillin Resistant Staphylococcus aureus isolated.
--- NOTE | 2024-10-10 09:54 | PN.IRAD.UPD ---
Update Note - IRAD
- -
TPA 10MG in a total volume of 50ml % 0.9% sodium chloride, 5 MG DORNASE in a total volume of 0.9% sodium chloride instilled via right ASEPT catheter at bedside. Instilled at 0940. RN notified
--- NOTE | 2024-10-10 12:23 | PN.IRAD.UPD ---
Update Note - IRAD
- -
Right Asept catheter drained bedside, 300 ml yellow/red tinted fluid. Site cleaned and dressed.
--- NOTE | 2024-10-10 14:26 | CM ---
manager training reviewed patient's chart and patient lives alone but stays with significant other most of the time, patient with ASEPT and there is an ongoing discussion on if plan is to keep ASEPT.
Plan; Await outcome of discussion on plan for patient, home when stable, no skilled needs per PT/OT.
[2024-10-10] MEDS: LASIX IV (16:19)
[2024-10-11 03:44] VITALS: BP 105/59
[2024-10-11 06:00] VITALS: BMI 30.1
[2024-10-11 07:00] VITALS: BP 117/73
[2024-10-11] MEDS: COLACE 200 MG PO (07:45)
[2024-10-11] MEDS: LASIX 40 MG IV (07:45)
[2024-10-11] MEDS: FEOSOL 325 MG PO (07:45)
--- NOTE | 2024-10-11 08:41 | W.PN.HOSP.TC ---
Today's Communication/Plan
-
Increase Lasix
Add metolazone
Likely for discharge tomorrow
Assessment / Plan
Assessment / Plan
HPI: HPI: 79 year old male PMH lung cancer with brain mets s/p gamma knife, HLD, anxiety, recurrent thoracentesis s/p drain placement; presented with increased swelling in the legs and abdomen, and difficulty with breathing.
He was seen by IR the week prior and was informed that paracentesis could not be performed.
He is on Lasix 40 mg daily at home. He complains of bilateral lower extremity pain with severe edema and oozing fluid.
He denies to other symptoms
A/P:
# Anasarca presumed due to clinical decompensation in setting of metastatic lung cancer
# Bilateral lower extremity edema
# Distended abdomen but minimal ascites on US, volume not sufficient for paracentesis.
Chest x-ray on my review no acute change, follow formal report
Lower extremity Dopplers negative for DVT
Echo from 07/2024: EF 61%. Indeterminate diastolic function. Mildly enlarged right ventricle with normal systolic function. Color flow pattern suggestive of small PFO.
For now, would hold off on oncology consult (no need)
Increase Lasix to 60 mg IV twice daily, add metolazone, trend creatinine, trend daily weights
#Hypokalemia
Repleted and resolved
#Left lower extremity wounds
Continue wound care
# Lung cancer with brain mets
# Loculated right pleural effusion s/p R pleural catheter
Patient reports that only 5 mL was able to be drained on 10/08/24
Appreciate pulmonology input, status post tPA 10/10
Monitor chest tube output
Follow-up with pulmonology in the office
DVT ppx: Lovenox SQ
Code status: DNR DNI, discussed with patient on admission
Total time spent to see the patient on the floor, examine the patient, review data and lab results, discuss treatment plan with patient, nursing staff around 50 minutes.
Physical Exam
General: No acute distress
HEENT: Normocephalic, Atraumatic, EOMI, MMM
Respiratory: Clear to Auscultation bilaterally
Cardiac: Normal S1/S2, Regular Rate and Rhythm
GI: Soft, Nontender, Nondistended, Normal Bowel Sounds
Extremities: No Clubbing, Cyanosis
Bilateral lower extremity edema noted
Neuro: Nonfocal/Grossly Intact
Psych: Calm, Cooperative
Derm:
Scattered wounds on left lower extremity, dressed
Anticipated Discharge: Within 24 hours
Subjective/Interval History
-
Date of Service: October 11, 2024
Patient reports dyspnea with activity secondary to abdominal distention. Reports abdominal distention and lower extremity edema are the same as yesterday. No shortness of breath at rest. No chest pain. No fever, no vomiting.
Objective Data
-
Labs:
Laboratory Results
10/11/24
06:00
WBC Pending
Hgb Pending
Hct Pending
Plt Count Pending
Sodium Pending
Potassium Pending
Chloride Pending
Carbon Dioxide Pending
BUN Pending
Creatinine Pending
Glucose Pending
Calcium Pending
Vital Signs:
Vital Signs
Temp Pulse Resp BP Pulse Ox
98.0 F 89 18 105/59 95
10/11/24 03:44 10/11/24 03:44 10/11/24 03:44 10/11/24 03:44 10/11/24 03:44
I&O
10/10/24 10/11/24 10/12/24
06:59 06:59 06:59
Intake Total 1920 / 1920 720 / 720
Output Total 2300 / 2300 1750 / 1750
Balance -380 / -380 -1030 / -1030
[2024-10-11 09:32] LABS: Hematocrit 37.3 % (39.0-52.0); Hemoglobin 12.2 g/dL (13.0-18.0); Mean Corp Hgb Conc. 32.7 g/dL (33.0-37.0); Mean Corpuscular Hgb 30.6 pg (27.0-31.0); Mean Corpuscular Volume 93.5 fL (80.0-94.0); Mean Platelet Volume 8.4 fL (7.4-10.4); Platelet Count 103 10^3/uL (130-400); Red Blood Cell Count 3.99 10^6/uL (4.70-6.10); Red Cell Dist. Width 15.7 % (11.5-14.5); White Blood Cell Count 7.9 10^3/uL (4.8-10.8)
[2024-10-11] MEDS: ZAROXOLYN 5 MG PO (09:43)
[2024-10-11 10:20] LABS: Blood Urea Nitrogen 36 mg/dl (9-20); Calcium 8.1 mg/dl (8.4-10.2); Carbon Dioxide 32 mmol/L (22-30); Chloride 98 mmol/L (98-107); Estimated Creatinine Clearance 56 ml/min; Glucose 137 mg/dl (70-99); Potassium 3.6 mmol/L (3.5-5.1); Sodium 134 mmol/L (135-145); eGFR 56.23
--- NOTE | 2024-10-11 10:23 | W.PN.PUL.V3 ---
Today's Communication / Plan
-
tPA/DNase injected--[address] chest reviewed
If he continues to have minimal pleural fluid output consideration towards no drainage for 2-[address] chest-if loculated pleural fluid does not increase then consideration towards Pleurx catheter removal-Dr. Newell has discussed
this with patient as well as interventional radiology-this will be discussed at next office appointment
Diuresis per primary service
Pulmonary will sign off-call with questions
Assessment
-
79-year-old male with metastatic lung cancer including brain mets stent status post gamma knife treatment on immunotherapy with recurrent need for thoracentesis status post Pleurx catheter placement presented with increasing swelling in the legs and
shortness of breath-pulmonary consulted for suspected Pleurx catheter malfunction 10/09/2024.
.
Recurrent pleural effusion with right Pleurx catheter-minimal drainage,? Malfunction were no longer pleural fluid
Bilateral lower extremity edema
Abdominal distention with minimal ascites on ultrasound not sufficient for paracentesis
Metastatic lung cancer with brain mets
Recurrent pleural effusions status post Pleurx catheters
Gfirla-rrlbtihflt-zagigkeqmn 11.7.
Thrombocytopenia-platelets 93
Conditions present prior to admission:
Metastatic non-small cell lung cancer with brain mets/gamma knife/DIAN procedure/immunotherapy-Xalkori and now new agent Rozlytek
Hyperlipidemia.
Anxiety.
Recurrent thoracenteses status post Pleurx catheter.
PAF.
GERD.
Anxiety.
Thoracenteses x 24-07/2020 through 12/2022. Left pleural catheter 11/24/2022 through. Right pleural catheter/ through present-required replacement and tPA/DNase 11/10/2023. Gamma knife radiation.
Plan
No respiratory compromise despite chronic loculated moderate to large pleural effusion-Pleurx catheter not draining significant amounts-50 mL 3 times a week.
Supplemental oxygen as needed.
Incentive spirometry.
Nebulizers if needed-currently not bronchospastic.
Aspiration precautions.
Interventional radiology consulted-evaluate Pleurx catheter
CT chest 10/09/2024-overall size of loculated right pleural collection remains essentially stable, fluid like occupies the cavity and percutaneous drainage catheter remains situated within the collection
Injected with tPA/DNase 10/10/2024-reviewed with interventional radiology--300 mL
Continue to drain 3 times a week
If he continues to have minimal pleural fluid output consideration towards no drainage for 2-[address] chest-if loculated pleural fluid does not increase then consideration towards Pleurx catheter removal-Dr. Newell has discussed
this with patient as well as interventional radiology-this will be discussed at next office appointment
He would love Pleurx catheter removed as then he could play golf which she loves him. Currently, the Pleurx catheter is hindering him from playing.
Diuresis continues as tolerated
Lower extremity edema may be related to combination of high-dose steroids-also was placed on new bvfhl-aalaoxoflvmpw-Ualfxgus.
Lower extremity ultrasound 10/09/2024-no evidence for right or left lower extremity DVT
DVT prophylaxis-On Lovenox.
Nutrition
Physical therapy
Pulmonary will sign off-please call with questions
The patient was last seen by Dr. Newell 05/02/2024 and has an appointment 11/29/2024
Diagnostic data:
Chest x-ray 10/07/24-right pleural catheter present with moderate to large right pleural effusion with superior loculation
Abdominal ultrasound 10/07/24-minimal ascites
Spirometry 12/02/20-FEV1 2.14 L-59%, FVC 2.96 L-60%, no significant BD response. Moderate restriction.
PFT 04/01/21-FEV1 2.93 L-80%, FVC 4.00 L-80%, TLC 74%, RV 63%, DLCO 78%. Mild restriction and mild reduction in diffusing capacity.Spirometry 08/26/21-FEV1 2.69 L-75%, FVC 2.36 L-60%, no significant BD response. Moderate restriction.
Spirometry 04/07/22-FEV1 2.13 L-59%, FVC 2.69 L-55%. No significant BD response. Moderate restriction.
PFT 06/07/22-FEV1 2.15 L-61%, FVC 2.79 L 57%, TLC 58%, RV percent, DLCO 66%. Moderate restriction and moderate reduction in diffusing capacity.
Spirometry 10/26/22-FEV1 1.13 L, 32%, FVC 1.47 L-30, 13% improvement FEV1 postbronchodilator. Severe restriction.
Spirometry 08/16/23-FEV1 1.98-56%, FVC 2.55-53%, no significant BD response. Moderate restriction.
PFT 11/01/23-FEV1 2.28-60%, FVC 3.05-66%, no significant BD response, TLC 54%, RV 33%, DLCO 60%, DLCO/VA 118%. Moderate restriction.Spirometry 05/02/24-FEV1 2.1-61%, FVC 2.77-50%, no significant BD response.� Moderate restriction.
6 minute walk test-08/14/2020- RA saturation of 96%, HR 95 bpm, Ambulated 840 feet. Patient maintained 94-95% on RA.6 minute walk test 12/02/20-Ambulated 900 feet with desaturation benny of 96%. The maximum heart rate of 104. No supplemental oxygen
required.6 minute walk test 04/07/22-Ambulate 1425 feet with 93% and maximum heart rate of 121. Maximum dyspnea is no supplemental oxygen needed.6 minute walk test 11/01/23-Ambulate 1350 feet with desaturation benny 98% and maximum heart rate of
117.Dyspnea scale score 0.5. No supplemental option required.
FeNO 12/02/20- 8ppbFeNO 06/07/22- 14 ppb
FeNO 11/01/23- 14 ppb.RADIOGRAPHIC STUDIES:������
PET scan 08/21/20 whole body-Dr. Newell reviewed with patient over phone-confluent FDG uptake associated with prior cold opacification in central right upper lobe slightly greater than central right lower lobe either or both could represent
patient's primary FDG avid malignancy, uptake also noted right hilum, subcarinal mediastinum and high right paratracheal mediastinum also suspicious for malignancy and superficial soft tissue FDG uptake posterior inferior chest wall where
thoracentesis was performed and positive for adenocarcinoma, specifically no head, neck, abdomen, pelvis or osseous metastatic disease noted-reports faxed to Dr. Wakefield-patient to see 08/25/20
PET scan 07/11/24-no suspicious FDG avid lesions in the lungs, stable loculated moderate right pleural effusion with FDG avid adjacent pleural thickening max SUV 4.9, previously 4.1, no suspicious skeletal lesions, no convincing evidence of FDG avid
or recurrent metastatic disease
CT chest 08/07/2020- confluent airspace opacity in the right lower lobe and tree-in-bud opacities throughout portions of the right upper and middle lobes indicating pneumonia. An underlying mass cannot be definitively excluded. Moderate right
pleural effusion.Chest v-jdl-Esbsefeo right pleural effusion following thoracentesis without pneumothorax. Possible 2.2 cm nodular opacity projecting over the right midlung zone.thoracentesis 08/07/2020. Successful right dorsum teases yielding 2000
and also blood tinged pleural fluid.cytology consistent with adenocarcinoma.
CXR 08/06/2020- New large right pleural effusion and right basilar airspace consolidation.
CXR 07/10/2020- Confluent right middle lobe airspace opacity, suspect pneumonia.
Chest x-ray 11/13/20-no pneumothorax following thoracentesis, interval improvement in previous right pleural effusion, left lung clear.
PET scan 11/17/20-No suspicious FDG avid lesionsPET scan 03/06/21-Continued interval decrease in bulk of confluent right perihilar soft tissue without significant FDG activity consistent with continued positive interval response to therapy, no new
enlarged or suspicious FDG avid lesions, moderate right pleural effusion without associated FDG activity.Thoracentesis 03/30/21--2000 mL straw-colored fluidThoracentesis 11/13/2038-cctqx-wsynv thoracentesis -2000 mL straw-colored fluid
Chest x-ray 03/30/21-no pneumothorax post right thoracentesis
Thoracentesis 08/03/21--1400 mL straw-colored fluidChest x-ray 08/03/21-No pneumothorax following right thoracentesis
PET scan 08/05/21-moderate sized malignant right pleural effusion surrounded by pleural metastases which appear unchanged, large density right lower lobe consolidation does not demonstrate increased FDG uptake, no evidence for new FDG or metastatic
disease
Thoracentesis 09/07/21--1250 mL, no studies performed.
Thoracentesis 10/06/21--950 mL, no studies performed.
Thoracentesis 01/25/22--1800 mL bloody pleural fluid.PET scan 01/27/22-moderate size malignant right pleural effusion surrounded by treated pleural metastases, large dense right lower lobe airspace consolidation demonstrating moderate FDG uptake is
increased since 07/2021 and could be malignant, infectious or inflammatory, no evidence for FDG avid metastasis inside the abdomen, pelvis or skeleton.
Thoracentesis 02/22/22--1275 mL hemorrhagic pleural fluid
Thoracentesis 03/24/22--250 mL bloody pleural fluid evacuation
Chest x-ray 03/24/22-no evidence for pneumothorax, loculated right pleural effusionBrain MRI 07/21/22-New bilateral metastatic disease to 5 areas
PET scan-07/28/22-Extremely large right pleural effusion. Fluid was not FDG avid, significant increase in size/migraine from prior PET scan with minimal/mild FDG uptake associated with the caudal area of pleural thickening, no new suspicious focus of
FDG uptake
Chest x-ray 10/19/22-progressive opacification right hemithorrax which is now complete consistent with progressive pleural effusion
CT chest 11/01/22-Right pleural effusion, significantly improved compared to CT 10/27/22, loculated right pleural effusion seen. Posterior inferior to the existing chest tube tip small in size, simple-appearing left pleural effusion associated with left
basilar subsegmental atelectasis, moderate coronary artery calcifications.
Thoracentesis 11/02/22-removal 1100 mL cloudy yellow pleural fluid-Left side.
Thoracentesis 11/16/22-Removal of 1500 mL straw-colored pleural fluid from the left
Tunnel pleural catheter placement 11/24/22 on the left side .CT chest 01/26/23-large complex loculated right pleural effusion associated with pleural thickening, right lung is compressed medially with suspected atelectasis, right to left shift, tunneled
left-sided pleural catheter in appropriate position, small left pleural effusion,-patient notified-Dr. Newell reviewed with interventional radiology-Pleurx catheter on the left may be removed and a catheter may be placed on the right for complete
drainage
CT chest 04/25/23-Right pleural catheter in place, persistent though smaller right loculated pleural effusion, right base atelectasis, trace residual left pleural effusion, no apparent hilar or mediastinal adenopathy, interval development of anterior
left seventh through ninth rib fractures.
PET scan 07/28/23-Chronic loculated malignant right pleural effusion with hypermetabolic pleural thickening with increased FDG activity compared to PET scan January 2023, SUV max 4.8-was 3.5,mild hypermetabolic trace left pleural effusion decreased in
size, SUV 2.2-was 3.[address] chest 11/08/23-chronic loculated malignant right pleural effusion, significantly decreased in the amount of fluid and now air filled cavity, catheter remains in similar location in the loculated pleural fluid is now irregular air filled cavity
with air and locules of fluid, slight decrease in size of layering pleural effusion at the right lung base, improved aeration of the residual right lung compared to the most recent PET scan, no change in the compressive atelectasis and scarring,
significant improvement in aeration of the left lung base with minimal residual pleural thickening and loculated fluid, no apparent hilar or mediastinal adenopathy-patient notified-Meeting with interventional radiology for catheter exchange 11/10/23 .
TPA/DNase injection into ASEPT catheter 11/10/23
PET scan 02/08/24-Dr. Wakefield-no evidence of FDG malignancy, metastases or adenopathy, large, thick wall partially loculated right-sided pleural effusion with internal fluid.� Pleural drainage catheter and 4 cm confluent parenchymal mass which may
be atelectasis or treated neoplasm and it is not significantly FDG avid measuring 3.4, SUV.CARDIAC STUDIES:������
Echocardiogram 04/04/21-EF 55-60%, no significant valvular disease, Normal diastolic functionEchocardiogram 10/28/22-, EF 55-60%, mild mitral regurgitation
�
Eosinophils 08/07/20-200Pleural fluid cytology 08/07/20-Positive cytology, HER-2 amplification positive, ROS 1 rearrangement positive, negative for EGFR, ALK, MET, RET
Pleural fluid cyt ology 10/14/20-positive for malignant cells, Morphology similar to that present in previous right pleural fluid cytology.Hemoglobin 11/01/22-11.1.Pleural fluid cytology-right side-10/28/22-negative for malignant cells.
Pleural fluid cytology-left side 11/02/22-negative for malignant cells .
Pleural fluid from ASEPT right 05/10/23-no growth, cultures negative, negative for malignant cells .
Pleural fluid from right ASEPT catheter 05/06/23-Obtained after patient completed ciprofloxacin-persistent exudate-LDH 18,000, WBC 13,000, pH 7.0, cultures pending-removal of catheter recommended-patient reluctant-we'll obtain infectious disease
consultation-atraumatic medication with interventional radiology .
Pleurx catheter culture 04/24/2023-many WBCs, Rare Enterobacter-Resistant to amoxicillin and ampicillin/sulbactam-otherwise pansensitive-patient notified-recommended ciprofloxacin 500 mg twice daily for 14 days, infectious disease consultation and
Pleurx catheter removal .
Pleural fluid cultures 04/06/23-many Enterobacter cloacae-resistant to Augmentin, ampicillin, cefazolin and sensitive to cefepime, cefotaxime, ceftriaxone, ciprofloxacin, gentamicin, levofloxacin, meropenem, Zosyn, tobramycin and Bactrim.
Subjective Data
-
Date of Service:
Date of Service: October 11, 2024
Chief Complaint: Pulmonary Follow Up and Dyspnea Follow Up
Subjective:
Feels better, leg still swollen, no complaints of shortness of breath, chest pain or abdominal pain
Review of Systems
General: Other (Per HPI)
Objective Data
Data Reviewed
Vital Signs / I&O:
Vital Signs
Temp Pulse Resp BP Pulse Ox
97.6 F 85 19 117/73 97
10/11/24 07:00 10/11/24 07:00 10/11/24 07:00 10/11/24 07:00 10/11/24 07:00
Intake and Output
10/10/24 10/11/24 10/12/24
06:59 06:59 06:59
Intake Total 1920 / 1920 720 / 720 240 / 240
Output Total 2300 / 2300 1750 / 1750
Balance -380 / -380 -1030 / -1030 240 / 240
SaO2: 97
Physical Exam
General: Respiratory Distress (n) and Comfortable
HEENT: Normocephalic, Anicteric and Moist Mucous Membranes
Cardiovascular: Regular Rhythm and Peripheral Edema (+1-2 bilateral lower extremity)
Respiratory: Clear (Diminished breath sounds right base), Wheeze (n), Crackles (n), Rhonchi (n), Non-Labored Respirations, Accessory Resp Muscle Use (n) and Stridor (n)
GI: Soft, Non Distended and Non Tender
Neurology: Awake, Alert and No Motor Deficits
Skin: Warm, Good Color, Cyanosis (n) and Jaundice (n)
Labs/Micro/Reports
Lab Data
10/11/24 09:17
10/11/24 09:17
Microbiology
10/07/24 23:01 Nose MRSA Screen - Final
No Methicillin Resistant Staphylococcus aureus isolated.
[2024-10-11 11:00] VITALS: BP 116/75
[2024-10-11] MEDS: KCL 40 MEQ PO ×2 (14:24→21:01)
--- NOTE | 2024-10-11 14:42 | CM ---
motel manager reviewed patient's chart and patient's plan is to return to home when stable, with [facility].
[facility]
[phone]
[2024-10-11 15:00] VITALS: BP 118/76
[2024-10-11] MEDS: LASIX 60 MG IV (15:55)
[2024-10-11 19:30] VITALS: BP 117/56
[2024-10-11 23:30] VITALS: BP 101/62
[2024-10-12 03:34] VITALS: BP 111/69
[2024-10-12 06:00] VITALS: BMI 29.6
[2024-10-12 07:10] VITALS: BP 121/67
--- NOTE | 2024-10-12 08:36 | W.PN.HOSP.TC ---
Today's Communication/Plan
-
Discharge today
Assessment / Plan
Assessment / Plan
HPI: HPI: 79 year old male PMH lung cancer with brain mets s/p gamma knife, HLD, anxiety, recurrent thoracentesis s/p drain placement; presented with increased swelling in the legs and abdomen, and difficulty with breathing.
He was seen by IR the week prior and was informed that paracentesis could not be performed.
He is on Lasix 40 mg daily at home. He complains of bilateral lower extremity pain with severe edema and oozing fluid.
He denies to other symptoms
A/P:
# Anasarca presumed due to clinical decompensation in setting of metastatic lung cancer
# Bilateral lower extremity edema
# Distended abdomen but minimal ascites on US, volume not sufficient for paracentesis.
Chest x-ray on my review no acute change, follow formal report
Lower extremity Dopplers negative for DVT
Echo from 07/2024: EF 61%. Indeterminate diastolic function. Mildly enlarged right ventricle with normal systolic function. Color flow pattern suggestive of small PFO.
For now, would hold off on oncology consult (no need)
Patient has lost 12 pounds of water weight status post IV Lasix and 1 dose of metolazone 10/11
Seen by cardiology, who recommends torsemide 20 mg daily upon discharge, will also prescribe potassium chloride 10 mEq daily
Follow-up with edema clinic, PCP in 1 week, and cardiology in 2-3 weeks
#Hypokalemia
Repleted and resolved
Discharged on potassium chloride 10 mEq daily
#Left lower extremity wounds
Continue wound care
# Lung cancer with brain mets
# Loculated right pleural effusion s/p R pleural catheter
Patient reports that only 5 mL was able to be drained on 10/08/24
Appreciate pulmonology input, status post tPA 10/10
Monitor chest tube output
Follow-up with pulmonology in the office
DVT ppx: Lovenox SQ
Code status: DNR DNI, discussed with patient on admission
Physical Exam
General: No acute distress
HEENT: Normocephalic, Atraumatic, EOMI, MMM
Respiratory: Clear to Auscultation bilaterally
Cardiac: Normal S1/S2, Regular Rate and Rhythm
GI: Soft, Nontender, Nondistended, Normal Bowel Sounds
Extremities: No Clubbing, Cyanosis
Bilateral lower extremity edema noted
Neuro: Nonfocal/Grossly Intact
Psych: Calm, Cooperative
Derm: Scattered wounds on left lower extremity, dressed
Anticipated Discharge: Today
Subjective/Interval History
-
Date of Service: October 12, 2024
Patient reports abdominal distention and lower extremity edema has improved. Dyspnea with activity has resolved. No chest pain, no shortness of breath. No fever, no vomiting.
Objective Data
-
Labs:
Laboratory Results
10/12/24
06:23
Sodium Pending
Potassium Pending
Chloride Pending
Carbon Dioxide Pending
BUN Pending
Creatinine Pending
Glucose Pending
Calcium Pending
Vital Signs:
Vital Signs
Temp Pulse Resp BP Pulse Ox
97.4 F 86 18 121/67 97
10/12/24 07:10 10/12/24 07:10 10/12/24 07:10 10/12/24 07:10 10/12/24 07:10
I&O
10/11/24 10/12/24 10/13/24
06:59 06:59 06:59
Intake Total 720 / 720 720 / 720 240 / 240
Output Total 1750 / 1750 2150 / 2150 800 / 800
Balance -1030 / -1030 -1430 / -1430 -560 / -560
[2024-10-12 09:00] LABS: Blood Urea Nitrogen 35 mg/dl (9-20); Carbon Dioxide 31 mmol/L (22-30); Chloride 96 mmol/L (98-107); Estimated Creatinine Clearance 52 ml/min; Glucose 75 mg/dl (70-99); Magnesium 2.3 mg/dl (1.6-2.3); Potassium 3.1 mmol/L (3.5-5.1); Sodium 133 mmol/L (135-145); eGFR 51.45
[2024-10-12] MEDS: COLACE 200 MG PO (09:12)
[2024-10-12] MEDS: FEOSOL 325 MG PO (09:14)
[2024-10-12] MEDS: LASIX IV (09:25)
[2024-10-12] MEDS: KCL 260 MEQ IV (09:56)
[2024-10-12] MEDS: KCL 40 MEQ PO ×2 (09:58→14:16)
[2024-10-12 11:56] VITALS: BP 121/81
--- NOTE | 2024-10-12 13:15 | CON.CAR ---
Addendum entered and electronically signed by John Domingo MD 10/12/24 16:04:
I saw and examined the patient.
The FAMILY HEALTH NURSE PRACTITIONER's note was reviewed and I agree with the note.
Comment:
79-year-old male with metastatic non-small cell lung cancer, recurrent pleural effusions, paroxysmal atrial fibrillation (no AC in the setting of brain mets), chronic lower extremity edema. He presents with a 12 pound weight gain, worsening lower
extremity edema, and shortness of breath. He had gained 12 pounds at home. He normally takes Lasix 40 mg daily but this was increased to twice daily recently. Despite this he had worsening weight gain and volume overload. This admission he has
been diuresed back down to his dry weight (107.5 kg). Exam is notable for 3+ pitting edema bilaterally. Legs are erythematous and warm. Abdomen is distended and nontender. Cardiovascular exam is tachycardic with an irregular rhythm. Lungs are
clear to auscultation bilaterally. Labs today are notable for creatinine 1.4 (baseline 1.1), K 3.1 this morning. ECG from 10/07/2024 shows sinus tachycardia with PACs. Telemetry reveals sinus tachycardia with very frequent PACs. Heart rate
ranges from 100s to 150s. Echocardiogram on 10/09/2024 with LVEF 50% and new inferior wall hypokinesis. Patient is adamant about going home today. Cardiology was consulted for outpatient diuretic dosing on discharge. I recommend switching his
Lasix to torsemide 20 mg daily as this has better bioavailability and he seems to struggle with gut edema. He should take 40 mEq potassium daily and have an outpatient BMP in 1 week. For his frequent PACs and low normal LV ejection fraction, I did
recommend beta-kp but he has had fatigue from metoprolol in the past and is not willing to retry at this time. If his goals of care change, we should start a beta-kp for his very frequent PACs and low normal ejection fraction in the
setting of chemotherapy. He also may need an ischemic evaluation for his new inferior wall hypokinesis. These issues were not addressed this admission because patient is very eager to get home. We will follow-up with him as an outpatient.
Original Note:
Consultation
Consultation Request
Date/Time Consultation Requested: 10/12/24 2286
Date/Time Consultation Performed: 10/12/24 1315
Requesting Provider: Dr. Marcus
Performing Provider: Alexia LONGORIA for Dr. Domingo
Reason for Consultation: edema and diuretic management
Medical History
-
Chief Complaint: edema
History of Present Illness:
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 He recently saw
Susan in the cardiology office prior to laser interstitial thermal therapy. He is here for evaluation of swelling in legs and abdomen that caused difficulty breathing. He has been diuresed and is feeling improved and we are consulted for
recommendation for diuretic at d/c.
Past Medical History
Past Medical History: Arrhythmias, Cancer and Other (as above)
Social History
Tobacco: Former Smoker
Family History
Family History: Reviewed & Not Pertinent
Allergies / Home Medications
Allergy/AdvReac Type Severity Reaction Status Date / Time
Latex, Natural Rubber Allergy Unknown Hives Verified 10/07/24 12:17
adhesive Allergy Hives Verified 10/07/24 12:17
�Medication �Instructions �Recorded �Confirmed �Type
docusate sodium 100 mg capsule 200 mg PO DAILY Constipation 09/07/21 10/07/24 History
(Colace)
furosemide 40 mg tablet 40 mg PO Daily Fluid 12/22/22 10/07/24 History
Retention/Swelling
sennosides 8.6 mg tablet (Senokot) 17.2 mg PO DAILYPRN PRN 12/22/22 10/07/24 History
constipation
ferrous sulfate 325 mg (65 mg 325 mg PO DAILY Supplement 02/01/23 10/07/24 History
iron) tablet
multivitamin 1 tab PO DAILY Supplement 11/10/23 10/07/24 History
pantoprazole 40 mg tablet,delayed 40 mg PO DAILY Gastrointestinal 08/17/24 10/07/24 History
release (Protonix) Issue
dexamethasone 4 mg tablet 4 mg PO TID Anti-inflammatory 10/07/24 10/07/24 History
vitamin B complex 1 tab PO DAILY Supplement 10/07/24 10/07/24 History
Review of Systems
-
History Source: Patient
All other systems: Negative unless noted
Respiratory: Trouble Breathing
Abdomen/GI: Other (abdominal distention)
Musculoskeletal: Edema
Physical Exam
Vital Signs
Temp Pulse Resp BP Pulse Ox
97.7 F 94 22 121/81 98
10/12/24 11:56 10/12/24 11:56 10/12/24 11:56 10/12/24 11:56 10/12/24 11:56
Lab Results
10/11/24 09:17
10/12/24 06:23
Troponin I 0.013 ng/ml 10/07/24 12:32
Hmb-F-Pguxnnkympz Pept 383 pg/ml 10/07/24 12:32
Physical Exam
General: Well Developed, Well Nourished and No Apparent Distress
HEENT: Normocephalic and Anicteric
Respiratory: Clear and Non Labored Respirations
Cardiac: Irregular Rhythm and Peripheral Edema
GI: Soft and Distended
Musculoskeletal: Edema (+1 BLE edema)
Skin: Warm, Dry and Other (legs are wrapped with YVONNE bandages)
Neuro: AO x 3
Psych: Calm
Impression / Plan
-
Edema: improved with diuresis
-patient with metastatic lung cancer and this edema is likely side effect of TKI therapy (Roslytrek), which he is now off and also steroid use
-this has improved s/p IV diuresis. Weight is back to baseline (down about 12 lbs this admit). He thinks he dry weight is 237 lbs.
-prior to coming on he was on Lasix 40 mg daily, which was briefly increase to 40 mg PO BID. Here, he has been getting mostly 40 mg IV BID, with one day of 40 mg IV once daily and one day of 60 mg IV and 40 mg IV. Yesterday, he got one dose of
metolazone as well.
-otherwise, Dr. Davis has recommended outpatient edema clinic to him and contact info provided for this as OP per notes
-hypokalemia is noted and being replaced and updated labs are pending- await labs, but likely torsemide 20 mg daily at d/c. Check labs 1 week as OP.
-echo with EF 50%, mild hypokinesis with mild basal and mid inferior hypokinesis. Prior echo with EF 61%. Will discuss with furnace keeper. Patient denies any CP. Add BB- consider ischemic eval as OP, but would defer to Dr. Davis.
PAF:
-stable
-rhythm is SR/ST with frequent PAC's- add metoprolol succinate 25 mg PO daily
-he denies palps
-he is not on OAC due to brain mets
Pleural effusion, recurrent:
-he has a Pleur-x catheter in place, which is being managed by pulmonary
Data Reviewed
-
EKG: Tracing Personally Visualized and interpreted (ST with PAC's)
Radiology: Report Reviewed by me (CXR: Right-sided pleural catheter is present. Linear densities within the left lower lung, stable, and likely scarring. Additionally, there are subtle increased reticular markings within the left mid to lower lung
with bronchitis/bronchiolitis, and possibly a component of interstitial pneumonitis. )
Medical Tests (Nuc Med, Echo etc): Report Reviewed by me (Echo 10/09/24: Mild hypokinesis with mild basal and mid inferior hypokinesis. Left ventricular ejection fraction is 50%. No significant valvular disease. )
Labs: Labs Reviewed by me
[2024-10-12 15:09] LABS: Blood Urea Nitrogen 33 mg/dl (9-20); Calcium 8.3 mg/dl (8.4-10.2); Carbon Dioxide 34 mmol/L (22-30); Chloride 96 mmol/L (98-107); Estimated Creatinine Clearance 52 ml/min; Glucose 81 mg/dl (70-99); Potassium 3.6 mmol/L (3.5-5.1); Sodium 134 mmol/L (135-145); eGFR 51.45
--- NOTE | 2024-10-12 15:19 | CM ---
Chart reviewed and patient's plan is to return to home when stable, [facility]
Plan; [facility]
[phone]
[2024-10-12 15:50] VITALS: BP 145/87
--- NOTE | 2024-10-12 15:51 | W.DCSUMMARY ---
Discharge Summary
Discharge Data
Date of Admission: 10/07/24
Date of Discharge: 10/12/24
-
Pending Results: No
Hospital Course
Discharge diagnosis:
Anasarca
Bilateral lower extremity edema
Abdominal distention
Chronic congestive heart failure with a preserved ejection fraction
Hypokalemia
Left lower extremity wounds
Lung cancer with metastases to the brain
Loculated right pleural effusion status post right Pleurx catheter
Consults: Cardiology, pulmonology
Hospital course:
79-year-old male with a past medical history of lung cancer with metastases to the brain, loculated right pleural effusion status post Pleurx catheter, chronic lower extremity edema, and left lower extremity wounds who was admitted for anasarca,
abdominal distention, and worsening bilateral lower extremity edema. Patient was previously on Lasix 40 mg daily. He was diuresed with Lasix 40 mg twice a day. His Lasix was increased to 60 mg IV twice a day, and he did receive 1 dose of
metolazone. He lost 12 pounds of fluid. He was seen in conjunction with cardiology, who recommends discharge on torsemide 20 mg daily as well as potassium chloride supplements. Cardiology also recommends treatment with a beta-kp, patient
declined.
Patient was seen in conjunction with pulmonology for his loculated right pleural effusion status post Pleurx catheter. He received tPA, and had 300 cc drained on 10/10/2024. Pulmonology recommends maintaining the right Pleurx catheter, and
following up with pulmonology in the office.
Patient's multiple medical conditions have been optimized. He needs to follow-up with the edema clinic as recommended by his primary sr. pricing analyst, Dr. Davis. He needs to follow-up with his primary care doctor in 1 week, as well as
cardiology/pulmonology in the office as directed.
Disposition: Home with home VN
Discharge planning: Required 51 minutes
Discharge Plan
-
Patient Disposition: Home (Routine Discharge)
Discharge Diagnosis/Procedures: Abdominal distention/lower extremity edema, chronic right loculated pleural effusion, lung cancer with metastases to the brain
Condition: Good
Diet: Low Sodium and Restrict fluids to 48 oz
Activity: As tolerated
Driving Restrictions: As prior to admission
Blood Work: BMP one week - electronically sent to [facility]
Activity Restrictions/Additional Instructions:
Please reschedule your appointment with the edema clinic, and follow-up with them.
Follow-up with your primary care doctor in 1 week, and cardiology/pulmonology as directed.
Wound Care Instructions Left Lower Extremity and draining areas bilaterally- Clean with normal saline or soap and water. Apply no-sting barrier around draining areas and open areas and cover with adaptic. May add alginate for moderate to heavy
drainage. Cover with ABD and wrap with fe. Change daily and PRN drainage.
Instructions: *PCP/Other Admissions [facility] Heart Failure Instructions
Referrals:
Ledy Aldrich CRNP [Specified Professional Personl] - 11/01/24 1:00 pm
Vazquez Yee MD [Family Provider] - in one week
Quinn Newell MD [Active] - in three to four weeks
Prescriptions:
New
torsemide 20 mg Tablet
20 mg PO DAILY Qty: 30 0RF
potassium chloride 20 mEq tablet extended release
20 meq PO DAILY Qty: 30 0RF
Continued
docusate sodium [Colace] 100 MG capsule
200 mg PO DAILY
sennosides [Senokot] 8.6 mg Tablet
17.2 mg PO DAILYPRN PRN (Reason: constipation)
ferrous sulfate 325 mg (65 mg iron) Tablet
325 mg PO DAILY
multivitamin Tablet
1 tab PO DAILY
pantoprazole [Protonix] 40 mg Tablet,Delayed Release (Dr/Ec)
40 mg PO DAILY
vitamin B complex Tablet
1 tab PO DAILY
dexamethasone 4 mg tablet
4 mg PO TID
Discontinued
furosemide 40 mg Tablet
40 mg PO Daily
Discharge Orders:
Discharge Patient (As Directed); Ordered 10/12/24
Ordered By: Rudy Marcus
Discharge Date and Time
Print Language: HUNGARIAN
--- NOTE | 2024-10-15 11:11 | W.HF.CON ---
Heart Failure
- LV Function
Left ventricular function study result: LV Ejection fraction >/= 50%
Ejection Fraction Percentage: 50
- ARNI
Patient already on ARNI: No
Heart Failure ARNI Not Indicated: LV Ejection Fraction >/= 40%
- ACEI/ARB
Patient already on ACEI/ARB: No
Heart Failure ACEI/ARB Not Indicated: LV Ejection Fraction > 40%
- Beta Abel
Patient already on Evidence Based Beta Abel: No
Heart Failure Evidence Based Beta Abel Not Indicated: LV Ejection Fraction > 40%
- Mineralocorticord Receptor Antagonist
Patient already on MRA: No
Heart Failure MRA Not Indicated: LV Ejection Fraction > 40%
- SGLT-2 Inhibitor
Patient already on SGLT-2 Inhibitor: No
Heart Failure SGLT-2 Inhibitor Not Indicated: LV Ejection Fraction >40%
- Afib Anticoagulation
Patient already on Anticoagulation for Afib: No
Heart Failure Afib Anticoagulation Contraindication: Extensive Metastatic CA
- NYHA CHF Classification
NYHA CHF Classification Level: Class III - Symptoms w/ min exertion, interferes w/ nml daily activity
- ACC/AHA Stage
ACC/AHA Stage: Stage C: Symptomatic Heart Failure
== END 2024-10-12 18:37 | disposition home health service (06) | DRG 181 ==
LOC: 4 WEST ACU 17:32
PROVIDERS: Emergency Medicine; Radiology Vascular & Interventional Radiology; ADMITTING PHYSICIAN Internal Medicine; ATTENDING PHYSICIAN Family Medicine; CONSULT PHYSICIAN Internal Medicine Critical Care Medicine; CONSULT PHYSICIAN Student in an Organized Health Care Education/Training Program; EMERGENCY PHYSICIAN Student in an Organized Health Care Education/Training Program; FAMILY PHYSICIAN Family Medicine
PROC: 3E0L317 Introduction of Other Thrombolytic into Pleural Cavity, Percutaneous Approach (ICD-10-PCS; 2024-10-10)
DX: C34.90 Malignant neoplasm of unspecified part of unspecified bronchus or lung (principal); C79.31 Secondary malignant neoplasm of brain; I50.32 Chronic diastolic (congestive) heart failure; J91.0 Malignant pleural effusion; Z66 Do not resuscitate; D69.6 Thrombocytopenia, unspecified; E78.00 Pure hypercholesterolemia, unspecified; E87.6 Hypokalemia; F41.9 Anxiety disorder, unspecified; I48.0 Paroxysmal atrial fibrillation; R60.0 Localized edema; K21.9 Gastro-esophageal reflux disease without esophagitis; D63.0 Anemia in neoplastic disease; T45.1X5A Adverse effect of antineoplastic and immunosuppressive drugs, initial encounter; T38.0X5A Adverse effect of glucocorticoids and synthetic analogues, initial encounter; Z87.891 Personal history of nicotine dependence; Z79.899 Other long term (current) drug therapy
CPT/HCPCS: 93308; 32561; 71046; 71250; 76705; 80048; 80053; 83735; 83880; 84100; 84484; 85025; 85027; 87070; 93005; 93321; 93325; 93970; 97161; 97165; 99285; J2997

== ENCOUNTER → 2025-01-29 13:08 | Outpatient (REF) | payer OTHER, SELFPAY | LOC: RCS 13:08 | PROVIDERS: ATTENDING PHYSICIAN Internal Medicine | DX: R60.0 Localized edema (principal); I48.0 Paroxysmal atrial fibrillation; J90 Pleural effusion, not elsewhere classified; C34.90 Malignant neoplasm of unspecified part of unspecified bronchus or lung | CPT/HCPCS: 93306; 93356 ==

== ENCOUNTER → 2025-02-06 10:50 | Outpatient (REF) | payer OTHER, SELFPAY | LOC: PET 10:50 | PROVIDERS: ATTENDING PHYSICIAN Internal Medicine Hematology & Oncology | DX: C34.11 Malignant neoplasm of upper lobe, right bronchus or lung (principal) | CPT/HCPCS: 78815; A9552 ==

== ENCOUNTER → 2025-05-02 09:15 | Outpatient (REF) | payer OTHER, SELFPAY | LOC: RCS 09:15 | PROVIDERS: ATTENDING PHYSICIAN Internal Medicine | DX: R60.0 Localized edema (principal); C34.90 Malignant neoplasm of unspecified part of unspecified bronchus or lung; I89.0 Lymphedema, not elsewhere classified; I50.32 Chronic diastolic (congestive) heart failure | CPT/HCPCS: 93306; 93356 ==

== ENCOUNTER → 2025-08-08 11:05 | Outpatient (REF) | payer OTHER, SELFPAY | LOC: PET 11:05 | PROVIDERS: ATTENDING PHYSICIAN Internal Medicine Hematology & Oncology | DX: C34.11 Malignant neoplasm of upper lobe, right bronchus or lung (principal); J91.0 Malignant pleural effusion; C77.1 Secondary and unspecified malignant neoplasm of intrathoracic lymph nodes; C78.2 Secondary malignant neoplasm of pleura; R63.4 Abnormal weight loss | CPT/HCPCS: 36415 ==

== ENCOUNTER → 2025-09-24 09:01 | Outpatient (REF) | payer OTHER, SELFPAY ==
[2025-09-24 09:17] VITALS: BP 125/60; BP_SYST 61
--- NOTE | 2025-09-24 10:16 | PN.IRAD.UPD ---
Update Note - IRAD
- -
TPA 8mg in a total volume of 50ml 0.9% normal saline, DORNASE 5mg in a total volume of 0.9% normal saline instilled via right ASEPT catheter at 10:05 am. Patient tolerated procedure well.
--- NOTE | 2025-09-24 12:34 | PN.IRAD.UPD ---
Update Note - IRAD
- -
200 ml bloody pleural fluid drained via right ASEPT catheter at 12:10 pm .. New, clean, dry dressing placed over site . Patient tolerated procedure well
== END ==
LOC: RADI 09:01
PROVIDERS: ATTENDING PHYSICIAN Internal Medicine Critical Care Medicine
DX: T85.698A Other mechanical complication of other specified internal prosthetic devices, implants and grafts, initial encounter (principal); J90 Pleural effusion, not elsewhere classified
CPT/HCPCS: 32561; J2997